=== PATIENT | female | born 1990 | race Two or more races ===

== ENCOUNTER 2021-03-02 10:56 | Outpatient (REF) | payer OTHER, SELFPAY ==
--- NOTE | 2021-03-02 11:52 | ECG_ITS ---
Test Reason : PRE OP Blood Pressure : / mmHG Vent. Rate : 066 BPM Atrial Rate : 066 BPM P-R Int : 138 ms QRS Dur : 076 ms QT Int : 388 ms P-R-T Axes : 062 057 019 degrees QTc Int : 406 ms Sinus rhythm with marked sinus arrhythmia Nonspecific ST abnormality Abnormal ECG No previous ECGs available Referred By: Filomena Reyes Electronically Signed By:ROWAN GOODWIN MD
[2021-03-02 11:58] LABS: MANUAL DIFF FLAG NO
[2021-03-02 12:04] LABS: Basophils Absolute Auto 0.1 X10*3/uL (0.0-0.2); Basophils Percent Auto 0.7 % (0-2); Eosinophils Absolute Auto 0.4 X10*3/uL (0.0-0.4); Eosinophils Percent Auto 3.8 % (0-4); Hematocrit 42.8 % (37-47); Hemoglobin 14.5 g/dl (12.0-16.0); Imm Gran Abs Auto 0.04 X10*3/uL (0.00-0.03); Imm Gran Pct Auto 0.4 % (0.0-0.4); Immature Retic Fraction 10.8 % (3.0-15.9); Lymphocytes Percent Auto 28.1 % (20-40); Mean Corpuscular HGB Conc 33.9 g/dl (31.0-35.0); Mean Corpuscular Hemoglobin 32.8 pg (27.0-33.0); Mean Corpuscular Volume 96.8 fL (80-98); Monocytes Absolute Auto 0.4 X10*3/uL (0.1-1.2); Monocytes Percent Auto 4.1 % (2-11); Neutrophils Absolute Auto 6.7 X10*3/uL (2.0-8.3); Neutrophils Percent Auto 62.9 % (45-73); Platelet Count 313 X10*3/uL (160-400); Red Blood Count 4.42 X10*6/uL (4.20-5.50); Retic HGB Equivalent 36.6 pg (30.0-35.0); Reticulocyte Percent 2.2 % (0.5-1.8); Reticulocytes Absolute 0.099 X10*6/uL (0.026-0.095); White Blood Count 10.7 X10*3/uL (4.8-10.8)
[2021-03-02 12:36] LABS: Alanine Aminotransferase 13 U/L (0-31); Albumin Level 4.3 g/dL (3.5-5.0); Alkaline Phosphatase 62 U/L (39-117); Anion Gap 14 (12-20); Aspartate Amino Transferase 13 U/L (5-31); Bilirubin Total 0.8 mg/dL (0.0-1.0); Blood Urea Nitrogen 13 mg/dL (9-16); Carbon Dioxide 25 mmol/L (22-29); Chloride 105 mmol/L (96-108); Cholesterol 186 mg/dL; Estimated Glomerular Filt Rate > 60; Glucose Random 95 mg/dL (60-115); HDL Cholesterol 32 mg/dL; Iron 97 mcg/dL (30-160); LDL Cholesterol Calculated 125 mg/dl; Percent Iron Saturation 32 % (15-50); Potassium 4.2 mmol/L (3.3-5.1); Sodium 140 mmol/L (135-145); Total Iron Binding Capacity 304 mcg/dL (228-428); Total Protein 6.9 g/dL (6.5-8.0); Triglycerides 146 mg/dL; Unsaturated Iron Binding 207 ug/dL
[2021-03-02 12:41] LABS: Ferritin 95 ng/mL (10-122); HCG Quantitative < 2 mIU/mL; Thyroid Stimulating Hormone 2.07 uIU/mL (0.32-4.0); Vitamin D 25-OH Total 19.6 ng/mL (>30)
[2021-03-02 13:57] LABS: Folate > 20.0 ng/mL (> or = 4.0); Vitamin B12 465 pg/mL (200-900)
== END 2021-03-02 10:57 | disposition home or self-care (01) ==
LOC: HO.LAB 10:56
PROVIDERS: PCP Internal Medicine; Visit Provider Internal Medicine
DX: Z01.818 Encounter for other preprocedural examination (principal); D64.9 Anemia, unspecified; E78.00 Pure hypercholesterolemia, unspecified
CPT/HCPCS: 36415; 80053; 80061; 82306; 82607; 82728; 82746; 83540; 84439; 84443; 84702; 85025; 85045; 93005

== ENCOUNTER → 2021-03-12 08:26 | Outpatient (REF) | payer OTHER, SELFPAY ==
--- NOTE | 2021-03-12 08:29 | ECG_ITS ---
Test Reason : PREOP Blood Pressure : / mmHG Vent. Rate : 066 BPM Atrial Rate : 066 BPM P-R Int : 134 ms QRS Dur : 078 ms QT Int : 376 ms P-R-T Axes : 061 050 -05 degrees QTc Int : 394 ms Normal sinus rhythm with sinus arrhythmia Nonspecific ST abnormality Abnormal ECG When compared with ECG of 02-MAR-2021 12:02, No significant change was found Referred By: Filomena Reyes Electronically Signed By:MAN MCKAY
== END ==
LOC: HO.CARD 08:26
PROVIDERS: PCP Internal Medicine; Visit Provider Internal Medicine
DX: Z01.818 Encounter for other preprocedural examination (principal)
CPT/HCPCS: 93005

== ENCOUNTER → 2021-03-15 11:17 | Outpatient (BNVA) | payer OTHER, SELFPAY | PROVIDERS: PCP Internal Medicine; Visit Provider Internal Medicine Cardiovascular Disease | DX: Z01.810 Encounter for preprocedural cardiovascular examination (principal) | CPT/HCPCS: 99202 ==

== ENCOUNTER → 2021-04-05 14:50 | Outpatient (BNVA) | payer OTHER, SELFPAY | PROVIDERS: PCP Internal Medicine; Referring Provider Internal Medicine; Visit Provider Surgery | DX: Z98.890 Other specified postprocedural states (principal) | CPT/HCPCS: 99202 ==

== ENCOUNTER 2021-04-13 09:56 | Emergency (ER) | payer OTHER, SELFPAY ==
[2021-04-13 10:41] VITALS: BP 104/74; PULSE 98; RESP 16; TEMP 36.9; O2SAT 99; BMI 32.2
--- NOTE | 2021-04-13 11:24 | ED.GENADULT ---
HPI - General Adult General Chief complaint: Wound/Laceration Stated complaint: WOUND CHECK Time Seen by Provider: 04/13/21 11:24 Source: patient Limitations: no limitations History of Present Illness HPI narrative: Patient returns for wound check at this time. In March patient had a tummy tuck surgery down in [place]. Patient recently had drains removed by local surgeon here. Patient denies any fever chills increasing abdominal pain. Patient denies any past medical history is not currently taking any medication. Patient does smoke tobacco and denies COVID-19 vaccines. Patient denies any discharge from the wounds or the wound coming apart. Patient does states the wound has been scabbing has some yellowness to 1 of the scabs. Related Data Home Medications Medication Instructions Recorded Confirmed ascorbate calcium (vitamin C) 500 500 mg PO DAILY 03/01/21 03/27/21 mg tablet ibuprofen 800 mg tablet 800 mg PO Q8H 03/01/21 03/27/21 multivitamin with iron 1 tab PO DAILY 03/01/21 03/27/21 acetaminophen 650 mg 650 mg PO Q12H 03/27/21 03/27/21 tablet,extended release Allergies Allergy/AdvReac Type Severity Reaction Status Date / Time No Known Allergies Allergy Mild NOT Verified 04/05/21 15:16 APPLICABLE Review of Systems Constitutional: Constitutional: Denies chills, Denies fever(s), Denies headache(s) and Denies malaise ENT: Denies headache(s) Cardiovascular: Cardiovascular: Denies chest pain and Denies dyspnea Respiratory: Respiratory: Denies dyspnea Gastrointestinal: Gastrointestinal: Denies diarrhea, Denies nausea and Denies vomiting Musculoskeletal: Musculoskeletal: Reports no additional musculoskeletal complaints Neurologic: Denies headache(s) Hematologic/Lymphatic: Hematologic/Lymphatic: Denies easy bleeding PMFSH Past Medical History Attestation statement: The following information was validated with the patient. Medical History Allergic rhinitis History of renal calculi Migraine Obesity (BMI 30-39.9) Tobacco abuse Surgical History History of abdominoplasty (~03/2021) History of section Family History Family History Father Hypertension CVD (cardiovascular disease) Mother Depression with anxiety PTSD (post-traumatic stress disorder) Brother Alive and well Maternal Grandmother COPD (chronic obstructive pulmonary disease) Diabetes Maternal Grandfather CVD (cardiovascular disease) Past heart attack Paternal Grandmother Breast cancer Maternal Uncle Substance abuse Social History Social History Alcohol intake: current Alcohol intake frequency: does not drink Smoking Status: Current some day smoker Cigarettes Per Day: 1 Smoked in Last 30 Days: Yes Use of substances other than those prescribed or required for medical reasons: No Advance Directives: No Advance Directives Information Provided: No Patient : No Physical Exam Vital Signs: Vital Signs: Last Vital Signs Temp 98.4 F 04/13/21 10:41 Pulse 98 04/13/21 10:41 Resp 16 04/13/21 10:41 BP 104/74 04/13/21 10:41 Pulse Ox 99 04/13/21 10:41 Body Mass Index 32.2 vital signs have been reviewed as normal and appeared to be correct. Blood pressure normal. Heart rate normal. Respiration rate normal. Temperature normal. Oxygen saturation normal. Appearance: Alert. Oriented X3. No acute distress. Head: Normal external exam. Normocephalic. Atraumatic. Eyes: PERRLA. EOMI. ENT: Pharynx normal. Uvula midline. CVS: Heart regular rate and rhythm no murmurs and rubs Respiratory: Breath sounds are clear to auscultation bilaterally. Abdomen: Soft nontender no rebound or guarding positive bowel sounds. Patient has a large scar from recent tummy tuck there is no wound dehiscence or purulent discharge noted abdomen soft in this area nontender. Skin: Skin warm and dry. Healing tummy tuck scar at this time Extremities: No lower extremity edema. Extremities exhibit normal range of motion. Extremities nontender. Neuro: Oriented X 3. No motor deficit. No sensory deficit. Reflexes normal. Course Course Course Narrative: Differential diagnosis: Wound checked lower abdomen Wound abscess wound dehiscence 11:28 a.m. The patient has no sign of wound dehiscence abdomen is soft in the area of the scar. Patient has a healing scar at this time advised to follow up with PCP and her surgeon and return if symptoms worsen. Topical antibiotic ointment is recommended at this time Discharge Plan Discharge Clinical Impression: Postop check Patient Disposition: Home, Self-Care Additional Instructions: Keep a close eye on the wound as it heals. Topical antibiotic ointment as needed Follow-up with your local surgeon Prescriptions: No Action ibuprofen 800 mg tablet 800 mg PO Q8H RF: 0 ascorbate calcium (vitamin C) 500 mg tablet 500 mg PO DAILY RF: 0 multivitamin with iron Tablet 1 tab PO DAILY RF: 0 acetaminophen [Tylenol 8 Hour] 650 mg tablet extended release 650 mg PO Q12H RF: 0 Referrals: Arvind Mckeon [Emergency Midlevel Provider] - 2 days Po,Filomena Waldrop MD [Primary Care Provider] - 2 days
== END 2021-04-13 11:46 | disposition home or self-care (01) ==
PROVIDERS: Emergency Provider Emergency Medicine; PCP Internal Medicine
DX: Z48.00 Encounter for change or removal of nonsurgical wound dressing (principal); Z79.899 Other long term (current) drug therapy; F17.210 Nicotine dependence, cigarettes, uncomplicated; Z71.6 Tobacco abuse counseling
CPT/HCPCS: 99283

== ENCOUNTER 2022-01-15 08:50 | Outpatient (REF) | payer OTHER, SELFPAY ==
[2022-01-16 03:45] LABS: CT PCR NOT DETECTED (Not Detect.); NG PCR NOT DETECTED (Not Detect.)
[2022-01-16 13:11] LABS: BV Int Neg Control Negative (Negative); BV Int Pos Control Positive (Positive)
[2022-01-19 15:02] LABS: HPV mRNA E6/E7 rflx Not Detected (Not Detected)
== END 2022-01-15 08:51 | disposition home or self-care (01) ==
LOC: HO.LAB 08:50
PROVIDERS: PCP Internal Medicine; Visit Provider Advanced Practice Midwife
DX: Z01.419 Encounter for gynecological examination (general) (routine) without abnormal findings (principal); T83.9XXA Unspecified complication of genitourinary prosthetic device, implant and graft, initial encounter; F17.210 Nicotine dependence, cigarettes, uncomplicated; N92.0 Excessive and frequent menstruation with regular cycle; N63.10 Unspecified lump in the right breast, unspecified quadrant; Z79.899 Other long term (current) drug therapy; Z20.2 Contact with and (suspected) exposure to infections with a predominantly sexual mode of transmission
CPT/HCPCS: 87480; 87491; 87510; 87591; 87624; 87660; 88142

== ENCOUNTER 2022-02-04 10:58 | Outpatient (REF) | payer OTHER, SELFPAY ==
--- NOTE | ~2022-02-04 | MM_ITS ---
EXAMINATION: MM DIAGNOSTIC DIGITAL BREAST TOMOSYNTHESIS, BILATERAL US DIAGNOSTIC ULTRASOUND BREAST, RIGHT CLINICAL INFORMATION: Palpable area noted at routine clinical exam upper right breast. Patient age 31. No prior breast imaging. No palpable abnormality noted by patient. No discharge. No known family history breast cancer. TC score 7%. COMPARISON: None (current study represents initial baseline exam). TECHNIQUE: Digital breast tomosynthesis is performed in both the craniocaudal and mediolateral oblique views along with computer-aided detection (CAD). Synthesized 2D images are generated from the tomosynthesis. Ultrasound breast is targeted to the upper breast. Grayscale imaging and color Doppler are performed without and with harmonics. Patient does not have palpable concern to direct attention at time of imaging. FINDINGS: There are scattered areas of fibroglandular density (ACR BI-RADS breast composition Category b). There are no significant masses, abnormal calcifications, or other abnormalities. There is no skin thickening or coarsening of the Troy's ligaments. The axilla and skin contours are unremarkable. Ultrasound demonstrates no cystic or solid mass or architectural abnormality or focal duct ectasia. Results are discussed with the patient at time of visit. MM/MM tomosynthesis diagnostic BI IMPRESSION: -No mammographic evidence of malignancy. -Unremarkable right breast ultrasound. ASSESSMENT: BI-RADS 1: Negative RECOMMENDATION: 1. Patient should be managed based on the clinical impression. If there is still clinically palpable concern, further evaluation may be considered with surgical consult. 2. Otherwise, routine annual screening mammography, beginning age 40, or earlier as clinical risk factors warrant. This patient's information was entered into a reminder system with a target due date for their next mammogram.
== END 2022-02-04 10:59 | disposition home or self-care (01) ==
LOC: HO.MAMMO 10:58
PROVIDERS: PCP Internal Medicine; Visit Provider Advanced Practice Midwife
DX: N63.12 Unspecified lump in the right breast, upper inner quadrant (principal)
CPT/HCPCS: 76642; 77062; 77063; 77066; 77067

== ENCOUNTER 2022-03-04 10:09 | Emergency (ER) | payer OTHER, SELFPAY ==
[2022-03-04 11:22] VITALS: BP 126/85; PULSE 103; RESP 18; TEMP 37.4; O2SAT 99; BMI 31.2
--- NOTE | 2022-03-04 11:40 | ED_ITS ---
HPI - General Adult General Chief complaint: General Medical Stated complaint: Sore throat Time Seen by Provider: 03/04/22 11:35 Source: patient Mode of arrival: ambulatory Limitations: no limitations History of Present Illness HPI narrative: 31-year-old female with reports of sore throat, subjective fevers cough for 4 days. No vomiting, diarrhea, chest pain, abdominal pain, headache, body aches Related Data Home Medications Medication Instructions Recorded Confirmed ascorbate calcium (vitamin C) 500 500 mg PO DAILY 03/01/21 01/15/22 mg tablet ibuprofen 800 mg tablet 800 mg PO Q8H 03/01/21 01/15/22 multivitamin with iron 1 tab PO DAILY 03/01/21 01/15/22 acetaminophen 650 mg 650 mg PO Q12H 03/27/21 12/17/21 tablet,extended release (Tylenol 8 Hour) levonorgestrel 20 mcg/24 hours (7 INTRAUTERINE 01/15/22 01/15/22 yrs) 52 mg intrauterine device (Mirena) Previous Rx's Medication Instructions Recorded erythromycin 5 mg/gram (0.5 %) eye 0.5 inch OPHTHALMIC (EYE) BID #1 g 12/17/21 ointment ibuprofen 600 mg tablet 600 mg PO Q8H PRN #20 tab 03/04/22 oseltamivir 75 mg capsule (Tamiflu) 75 mg PO Q12H 5 Days #10 cap 03/04/22 Allergies Allergy/AdvReac Type Severity Reaction Status Date / Time No Known Allergies Allergy Mild NOT Verified 03/04/22 11:25 APPLICABLE Review of Systems Review of Systems: Yes all other systems are reviewed and are negative Constitutional: Constitutional: Reports no additional constitutional complaints, Denies body ache(s), Denies chills, Reports fever(s) (subjectve), De nies headache(s) and Denies weakness Eyes: Eyes: Reports no additional eye complaints and Denies change in vision ENT: Reports system reviewed and no additional complaints, except as documented, Denies dizziness, Denies headache(s), Denies nasal congestion, Denies nasal discharge, Denies neck pain and Reports sore throat Cardiovascular: Cardiovascular: Reports no additional cardiovascular complaints, Denies chest pain, Denies leg edema and Denies dyspnea Respiratory: Respiratory: Reports no additional respiratory complaints, Reports cough and Denies dyspnea Gastrointestinal: Gastrointestinal: Reports no additional gastrointestinal complaints, Denies abdominal pain, Denies diarrhea, Denies nausea and Denies vomiting Genitourinary: Genitourinary: Reports no additional female genitourinary complaints and Denies urinary incontinence Musculoskeletal: Musculoskeletal: Reports no additional musculoskeletal complaints, Denies back pain, Denies arthralgias, Denies joint swelling, Denies neck pain, Denies numbness and Denies tingling Integumentary/Breasts: Skin/Breast: Reports system reviewed and no additional complaints, except as docu and Denies rash Neurologic: Reports system reviewed and no additional complaints, except as documented, Denies dizziness, Denies headache(s), Denies numbness, Denies tingling and Denies weakness PMFSH Past Medical History Attestation statement: The following information was validated with the patient. Source: old records reviewed and nursing notes reviewed Medical History Allergic rhinitis History of renal calculi Migraine Obesity (BMI 30-39.9) Tobacco abuse Surgical History History of abdominoplasty (~03/2021) History of section Family History Family History Father Hypertension CVD (cardiovascular disease) Mother Depression with anxiety PTSD (post-traumatic stress disorder) Brother Alive and well Maternal Grandmother COPD (chronic obstructive pulmonary disease) Diabetes Maternal Grandfather CVD (cardiovascular disease) Past heart attack Paternal Grandmother Breast cancer Maternal Uncle Substance abuse Social History Social History Housing: Apartment Alcohol intake: current Alcohol intake frequency: holidays/special occasions only Patient Tobacco Use Status: Current everyday Tobacco user Cigarettes Per Day: 3 Advance Directives: No Advance Directives Information Provided: No Patient : No Current occupational status: employed Physical Exam ED Vital Signs: Vital Signs - 24 hr 03/04/22 11:22 03/04/22 13:42 Temperature 99.3 F 101.9 F H Pulse Rate 103 H 121 H Respiratory Rate 18 Blood Pressure 126/85 118/78 Pulse Oximetry 99 96 BMI result Body Mass Index 31.2 Const General: cooperative, healthy appearing and no acute distress Orientation/consciousness: patient oriented x3 Limitations: no limitations HENMT Head: Yes normal to inspection Ears: hearing grossly normal bilaterally and TM's normal bilaterally General nose exam: Normal external nose present Face and sinus: Yes normal facial exam Mouth: Normal oral and palatal mucosa present Teeth and gingiva: dentition normal Throat: Yes posterior oropharynx normal, Yes tonsils normal and Yes uvula midline Eyes General: appearance normal, both eyes and all related structures Pupils: Equal, round and reactive pupils present Neck Neck: Yes normal visual inspection, Yes full ROM, Yes no lymphadenopathy and Yes no meningeal signs Chest Chest palpation & inspection: normal inspection of the chest Resp Effort & Inspection: normal respiratory effort Auscultation: clear to auscultation bilaterally Cardio Rate: regular rate Rhythm: regular rhythm Peripheral pulses: Peripheral pulses 2+ throughout GI Inspection: Yes normal to inspection Palpation (GI): Soft to palpation and nontender General: Yes no CVA tenderness Back/Spine/Pelvis Back: no CVA tenderness Thoracic/Lumbar Spine: thoracic and lumbar spine normal to inspection Skin General skin exam: no rashes or lesions noted Neuro General: patient oriented x3, moves all extremities and no meningeal signs Cranial nerves: Yes Equal, round and reactive pupils present Extrem General: Yes normal to inspection, Yes no pedal edema and Yes no calf tenderness Course Course Course Narrative: 31-year-old female here with 4 days of sore throat, cough and subjective fevers. Will check rapid flu, rapid COVID and strep testing 1400-flu A positive. Rapid strep and COVID are negative. Patient does have a fever and mild tachycardia which is likely secondary to fever which is from a viral infection. Patient received Tylenol prior to discharge. Recommended supportive care at home, alternating Tylenol and Motrin, lots of fluids. Patient also given course of Tamiflu. We discussed common side effects the medication. Reviewed worrisome signs and symptoms of when to return to the emergency department. Comfortable discharge home. Medical Decision Making Medical Records Medical records reviewed: Yes I reviewed the patient's medical records. Lab Data Lab results reviewed: Yes I reviewed the patient's lab results. Labs: Lab Results 03/04/22 03/04/22 03/04/22 Range/Units 11:28 11:42 11:42 COVID-19 ([facility]) Negative (Negative) COVID-19 Clin Com See Note Influenza Type A ([facility]) Positive A (Negative) Influenza Type B ([facility]) Negative (Negative) Influenza A & B Note See Note S. pyogenes GrpA [facility] Negative (Negative) Discharge Plan Discharge Clinical Impression: Influenza A Patient Disposition: Home, Self-Care Instructions: Influenza (DC) Additional Instructions: Motrin or tylenol for pain or fever Increase fluids, rest Prescriptions: New oseltamivir [Tamiflu] 75 mg capsule 75 mg PO Q12H 5 Days Qty: 10 0RF ibuprofen 600 mg tablet 600 mg PO Q8H PRN (Reason: pain) Qty: 20 0RF No Action ibuprofen 800 mg tablet 800 mg PO Q8H 0RF ascorbate calcium (vitamin C) 500 mg tablet 500 mg PO DAILY 0RF multivitamin with iron Tablet 1 tab PO DAILY 0RF acetaminophen [Tylenol 8 Hour] 650 mg tablet extended release 650 mg PO Q12H 0RF erythromycin 5 mg/gram (0.5 %) ointment 0.5 inch ophthalmic (eye) BID Qty: 1 0RF Mirena 20 mcg/24 hours (7 yrs) 52 mg intrauterine device intrauterine 0RF Referrals: Po,Filomena Waldrop MD [Primary Care Provider] - 1 week Stand Alone Forms: Work/School Release Interventions: ED Discharge Assessment Last Done: 03/04/22 14:09 Discharge Date/Time: 03/04/22 14:11
[2022-03-04 11:57] LABS: IDNOW Serial# 08D9AD1C; Strep A Nucleic Acid Negative (Negative)
[2022-03-04 12:10] LABS: Influenza A Positive (Negative); Influenza B2 Negative (Negative)
[2022-03-04 13:22] LABS: COVID-19 Test Negative (Negative)
[2022-03-04 13:42] VITALS: BP 118/78; PULSE 121; TEMP 38.8; O2SAT 96
[2022-03-04] MEDS: Acetaminophen 325 MG TABLET 975 MG PO (14:03)
== END 2022-03-04 14:11 | disposition home or self-care (01) ==
PROVIDERS: Nurse Practitioner Family; Emergency Provider Emergency Medicine; PCP Internal Medicine
DX: J11.1 Influenza due to unidentified influenza virus with other respiratory manifestations (principal); Z20.822 Contact with and (suspected) exposure to COVID-19; R50.9 Fever, unspecified
CPT/HCPCS: 36415; 87502; 87635; 87651; 99283

== ENCOUNTER 2024-02-06 10:07 | Outpatient (AMB) | payer OTHER, SELFPAY ==
[2024-02-06 10:11] VITALS: BP 100/62; BMI 33.2
--- NOTE | 2024-02-06 10:11 | A.OFFVIS_ITS ---
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 Information Interpreted: non-clinical & clinical Operational Assistant: Operational Assistant Present (Aidyn) Allergies No Known Allergies Allergy (Mild, Verified 02/06/24 10:13) NOT APPLICABLE Medication List - Last Reconciled 02/06/24 by Christiane Rock CNM acetaminophen ER (Tylenol 8 Hour) 650 mg PO Q12H ascorbate calcium (vitamin C) 500 mg PO DAILY erythromycin 0.5 inches ophthalmic (eye) BID ibuprofen 600 mg PO Q8H PRN ibuprofen 800 mg PO Q8H levonorgestrel (Mirena) intrauterine multivitamin with iron 1 tab PO DAILY Is last menstrual period known: No (No menses Mirena) Post menopausal: No 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 She has a Mirena IU S she was contemplating having it taken out but then she changed her mind because she realizes she does not want to get her. And she definitely needs it for control she has not involved with anybody right now so she was thinking she could do without but she does not want to take a chance on an unintended this is her 3rd Mirena it was giving her some trouble and she was having some pain and discomfort a couple of years ago but then the pain went away and so she never went for the ultrasound. She has had 3 C sections her cervix was difficult to visualize at the last visit. She also had a palpable mass in her right upper chest 2 years ago that was evaluated with mammogram and ultrasound and it was not palpable to the radiology team and it was not found. [facility] Medical History Obesity (BMI 30-39.9) Allergic rhinitis Migraine Tobacco abuse History of renal calculi Surgical History History of abdominoplasty (~03/2021) History of section Family History Father Hypertension CVD (cardiovascular disease) Mother Depression with anxiety PTSD (post-traumatic stress disorder) Brother Alive and well Maternal Grandmother COPD (chronic obstructive pulmonary disease) Diabetes Maternal Grandfather CVD (cardiovascular disease) Past heart attack Paternal Grandmother Breast cancer Maternal Uncle Substance abuse Social History (Updated 02/06/24 @ 10:15 by DEANGELO Ramos) Housing: Apartment Alcohol intake: current Alcohol intake frequency: holidays/special occasions only Patient Tobacco Use Status: Former Tobacco user Cigarettes Per Day: 3 Current occupational status: employed Female Reproductive History Menstrual Age of Menarche: 14 Duration of menses: 3-5 days control method: progestin IUCD Total pregnancies: 3 Full term: 3 Number of Living Children: 3 Date of last pap smear: 01/17/22 (negative) History of abnormal pap smear: No Physical Exam Vital Signs: Last Vital Signs BP 100/62 02/06/24 10:11 BMI result Body Mass Index 33.2 Const General: healthy appearing, comfortable, no acute distress, well developed and alert Nutritional Appearance: average body habitus Orientation/consciousness: patient oriented x3 Limitations: no limitations HEENT Head: Yes normocephalic Neck Neck: Yes normal visual inspection Chest Chest palpation & inspection: normal inspection of the chest Breast/axilla inspection: normal inspection of the breasts and normal inspection of the axillae Breast/axilla palpation: normal palpation of the breasts and normal palpation of the axillae Resp Effort & Inspection: normal respiratory effort GI Inspection: Yes normal to inspection, No Abdominal wall edema and No distended Palpation (GI): Soft to palpation and nontender Other: Vagina pink and moist with scant normal discharge cervix nulliparous with Mirena string extremely anterior uterus anterior mobile nontender not palpating is fixed as it felt at the last exam (patient has had 3 C sections) discussed possible challenging Mirena exchange will need base of table elevated. Very good tone with Kegel. General: Yes bladder normal to palpation External Female Exam: normal external appearance and normal appearance of the urethra Speculum Exam - Vagina: normal appearance of the vagina, normal palpation and normal vaginal discharge Speculum Exam - Cervix: normal appearance of the cervix, normal palpation and nontender Bimanual exam- vagina & uterus: normal bimanual exam, normal palpation, uterine size normal, bladder normal to palpation, consistency normal, normal palpation, uterine mobility normal, uterine shape normal, No Cervical tenderness present, non-tender and no cervical motion tenderness Bimanual Exam- Adnexa, other: normal adnexae, no masses, normal and No adnexal tenderness Neuro General: patient oriented x3 Assessment & Plan Assessment & Plan (1) Cervical cancer screening: Comment: 01/15/2022 Pap equals negative with negative HPV. Code(s): Z12.4 - Encounter for screening for malignant neoplasm of cervix (2) Well woman exam with routine gynecological exam: Code(s): Z01.419 - Encounter for gynecological examination (general) (routine) without abnormal findings (3) Encounter for routine checking of intrauterine contraceptive device (IUD): Code(s): Z30.431 - Encounter for routine checking of intrauterine contraceptive device Plan -----Discussed in this visit the following: healthy balanced diet, regular and consistent exercise, getting recommended health screens, doing the best she can for her particular health concerns, kegel exercises, pap smear screening and followup recommendations, mammography screening and SBE, normal changes in cycles in her life stage--- .Reviewed how the Mirena works and its affect on menstrual cycles and menses and the other common changes that women sometimes notice on mood weight another subtle cyclic changes. Reviewed that 1 of the reasons we insert the Mirena at the beginning of the menses is because of the typical physiologic changes that happen with menses that allow for the cervix to be slightly softened and open a very tiny bit which allow for more easy insertion of the Mirena. 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 Discussed problems to watch for including any severe pain, fever, feeling of expulsion. Also discussed what to do if those occur.(call here or seek urgent care) Reviewed why we leave the strings about 3-4 centimetres long, so that they will curl around the cervix otherwise the sharper tip of the strings could be palpable and be uncomfortable. Additionally when they are cut too short it is not possible to remove the IUD in the future easily. Also discussed the initial recommendations to use the Mirena IUD for contraception for up to 5 years. Some recent studies are indicating that it can be used for longer and there are current recommendations saying it can be left for longer period of time when used for contraception, up to 8 years and it can be used for 5 years when it is being used to help control abnormal bleeding. However, many women, whose periods went away for the 1st few years of having the Mirena, have reported that around 4-1/2-5 years into its use, they have noticed return of full menses, and return of ovulatory signs and symptoms midcycle. This varies from women to woman. In addition women who have had it to help control bleeding, have had amenorrhea for very many years and sometimes have opted to leave it in longer if they are still not bleeding, when they are not concerned about contraception. I recommend the she pay attention to how the effects are acting on her own body, and cycles, and always take care to be aware of this. And if she is using it for contraception, and the consequences of conceiving would be great for her, she would be mckeon to pay attention to this, and not depend on it, if she has a return to fertility. And if she desires replacement, she should return for replacement at the appropriate time. Reviewed in particular that it can be left in longer for contraceptive use however the patient is very clear that she would not want to chance an on planned and very much would want to have it replaced when it is due to be replaced which is this coming May she is going to schedule that now. I offered her other STI blood work but she declined.. Coding Level of Care Code Est Pt Prev Care 18-39y(77001) Diagnoses Cervical cancer screening Z12.4 Well woman exam with routine gynecological exam Z01.419 Encounter for routine checking of intrauterine contraceptive device (IUD) Z30.431
== END 2024-02-06 11:08 | disposition home or self-care (01) ==
LOC: HO.HWSM 10:07
PROVIDERS: PCP Internal Medicine; Visit Provider Advanced Practice Midwife
DX: Z12.4 Encounter for screening for malignant neoplasm of cervix (principal); Z01.419 Encounter for gynecological examination (general) (routine) without abnormal findings; Z30.431 Encounter for routine checking of intrauterine contraceptive device
CPT/HCPCS: 99395

== ENCOUNTER 2024-02-06 10:07 | Outpatient (REF) | payer OTHER, SELFPAY ==
[2024-02-07 09:50] LABS: CT PCR NOT DETECTED (Not Detect.); NG PCR NOT DETECTED (Not Detect.)
[2024-02-07 12:06] LABS: BV Int Neg Control Negative (Negative); BV Int Pos Control Positive (Positive)
== END 2024-02-06 10:08 | disposition home or self-care (01) ==
LOC: HO.LNP 10:07
PROVIDERS: PCP Internal Medicine; Visit Provider Advanced Practice Midwife
DX: Z01.419 Encounter for gynecological examination (general) (routine) without abnormal findings (principal); Z20.2 Contact with and (suspected) exposure to infections with a predominantly sexual mode of transmission; Z97.5 Presence of (intrauterine) contraceptive device; Z79.899 Other long term (current) drug therapy
CPT/HCPCS: 0353U; 87480; 87510; 87660; 99395

== ENCOUNTER 2024-04-16 09:08 | Outpatient (AMB) | payer OTHER, SELFPAY ==
[2024-04-16 09:15] VITALS: BP 118/64; BMI 33.2
--- NOTE | 2024-04-16 09:15 | MHC.OFFVIS ---
Vital Signs 04/16/24 09:15 Height 5 ft Weight 170 lb BMI 33.2 BP 118/64 Intake Visit Reasons: Mirena exchange Allergies No Known Allergies Allergy (Mild, Verified 02/06/24 10:13) NOT APPLICABLE Medication List - Last Reconciled 04/16/24 by Christiane Rock CNM acetaminophen ER (Tylenol 8 Hour) 650 mg PO Q12H ascorbate calcium (vitamin C) 500 mg PO DAILY erythromycin 0.5 inches ophthalmic (eye) BID ibuprofen 600 mg PO Q8H PRN ibuprofen 800 mg PO Q8H levonorgestrel (Mirena) intrauterine metronidazole 0.75%(37.5mg/5gram) 1 appful vaginal BEDTIME 5 days multivitamin with iron 1 tab PO DAILY Is last menstrual period known: No (IUD) HPI HPI Mirena exchange: Details: Exchange of her Mirena IUD she has had 3 is ones been in for 5 years she understands it can be used longer but she did not want to take any possible chance on the unintended this stage of her life with her oldest being 15 years old and her other 2 growing. 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 She has not been getting periods. She recalls that the last exchange was challenging. [facility] Medical History Obesity (BMI 30-39.9) Allergic rhinitis Migraine Tobacco abuse History of renal calculi Surgical History History of abdominoplasty (~03/2021) History of section Family History Father Hypertension CVD (cardiovascular disease) Mother Depression with anxiety PTSD (post-traumatic stress disorder) Brother Alive and well Maternal Grandmother COPD (chronic obstructive pulmonary disease) Diabetes Maternal Grandfather CVD (cardiovascular disease) Past heart attack Paternal Grandmother Breast cancer Maternal Uncle Substance abuse Social History Housing: Apartment Alcohol intake: current Alcohol intake frequency: holidays/special occasions only Patient Tobacco Use Status: Former Tobacco user Cigarettes Per Day: 3 Current occupational status: employed Female Reproductive History Menstrual Age of Menarche: 14 Duration of menses: other control method: progestin IUCD Total pregnancies: 3 Full term: 3 Physical Exam Vital Signs: Last Vital Signs BP 118/64 04/16/24 09:15 BMI result Body Mass Index 33.2 Other: Speculum placed to obtain cultures as not clear when the last ones were done. Cervix pink nulliparous shiny smooth with Mirena strings visible clear to scant discharge Bimanual done to confirm anatomy. Cervix very anterior uterus anterior small somewhat fixed secondary to scar tissue from 3 C sections. Speculum we placed for Mirena exchange procedure. See procedures. External Female Exam: normal external appearance Speculum Exam - Vagina: normal appearance of the vagina and normal vaginal discharge Speculum Exam - Cervix: normal appearance of the cervix Bimanual exam- vagina & uterus: normal bimanual exam, uterine size normal, consistency normal, uterine mobility normal, uterine shape normal and non-tender Bimanual Exam- Adnexa, other: normal adnexae, no masses and No adnexal tenderness Office Procedures IUD Insert/Removal Details Details: ---Patient is here for her IUD removal and insertion. Secondary to the very anterior situation of her cervix and uterus patient has buttocks were elevated somewhat physically and a well by her placing her fists underneath her buttocks. Speculum exam done 1st so that testing for gonorrhea chlamydia trichomoniasis Gardnerella and Emperatriz be done. Bimanual exam was done. Her uterus is firm, nontender, and appropriate sized, very anterior and slightly fixed anteriorly secondary to scar tissue from C-sections. Cervix nulliparous pink smooth very anterior secondary to above. . The IUD strings were grasped with ring forceps, and as patient coughed the IUD was removed easily with 1 tug. ---The cervix was cleaned with Betadine. Tenaculum was placed on the cervix slowly to minimize cramping. The uterus was sounded slowly and gently she show a measurement of 7 cm. The IUD was removed from its package, after checking identifying information and lot dates and expiration dates and and gently inserted into the os, as per the IUD insertion procedure. The strings were then trimmed to 3-4 centimetres. The tenaculum was removed and gentle pressure applied with a swab, until any bleeding subsided from the tenaculum sites. The speculum was gently removed. The patient sat up. I Reviewed what to expect, and what indications would necessitate a call. Pt to call for fever, untoward pain or cramping. I reviewed any appropriate backup method. Pt to return for recheck as scheduled. 86452-KRP Insertion 10993-SUB Removal Procedure code (CPT) selection complete Office Meds Mirena 21 mcg/24 hours (8 yrs) 52 mg intrauterine device Performing Provider: Christiane Rock CNM Performing Location: [facility] [place] [facility] Administered by: Marcin Gonzalez CMA on 04/16/24 10:11 Dose Route Admin Location Dispensed Lot Number Expiration Date 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 Code(s): Z12.4 - Encounter for screening for malignant neoplasm of cervix Category: Medical (2) Encounter for removal and reinsertion of intrauterine contraceptive device (IUD): Code(s): Z30.433 - Encounter for removal and reinsertion of intrauterine contraceptive device Category: Medical Plan The removal and insertion went very smoothly within the challenging position of her cervix in uterus. Reviewed signs and symptoms that would require seeking care signs of infection fever chills severe pain any signs of expulsion. If it were to be expelled, she should avoid intercourse until replacement. She may take ibuprofen 600 mg for cramping. She tolerated it very well we will see her in about 6 weeks to check on it. This is her 3rd 1 and she is very familiar with the side effects again anything is possible with the change of method some bleeding may be possible Orders: Orders AMB HCG Urine Test Today Z32.02 - Encounter for test, result negative AMB IUD Insertion/Removal - Practice Supplied Today Z30.430 - Encounter for insertion of intrauterine contraceptive device Coding Level of Care Code Est Pt Level 3 (11706) Diagnoses Cervical cancer screening Z12.4 Encounter for removal and reinsertion of intrauterine contraceptive device (IUD) Z30.433 CPT Codes Details - CPT: 55166-BIQ Insertion ([id number]) Details - CPT: 84742-IYG Removal ([id number])
== END 2024-04-16 10:39 | disposition home or self-care (01) ==
PROVIDERS: PCP Internal Medicine; Visit Provider Advanced Practice Midwife
DX: Z30.433 Encounter for removal and reinsertion of intrauterine contraceptive device (principal); Z32.02 Encounter for pregnancy test, result negative
CPT/HCPCS: 58300; 58301

== ENCOUNTER 2024-04-16 09:08 | Outpatient (REF) | payer OTHER, SELFPAY ==
[2024-04-17 03:49] LABS: CT PCR NOT DETECTED (Not Detect.); NG PCR NOT DETECTED (Not Detect.)
[2024-04-17 09:29] LABS: Bacterial Vaginosis PCR NEGATIVE (Negative); Candida Group PCR NOT DETECTED (Not Detect); Candida glab krusei PCR NOT DETECTED (Not Detect); Trichomonas vaginalis PCR NOT DETECTED (Not Detect)
== END 2024-04-16 09:09 | disposition home or self-care (01) ==
LOC: HO.LAB 09:08
PROVIDERS: PCP Internal Medicine; Visit Provider Advanced Practice Midwife
DX: Z01.419 Encounter for gynecological examination (general) (routine) without abnormal findings (principal); Z30.433 Encounter for removal and reinsertion of intrauterine contraceptive device
CPT/HCPCS: 0352U; 0353U; 58300; 58301; 81025; J7298

== ENCOUNTER 2024-05-18 08:50 | Outpatient (AMB) | payer OTHER, SELFPAY ==
--- NOTE | 2024-05-18 08:57 | MHC.PC.OV ---
Vital Signs 05/18/24 09:01 Height 5 ft Weight 171 lb 8 oz BMI 33.5 BP 120/72 Blood Pressure Location Lt brachial Position Sitting Pulse 79 Pulse Source Pulse Oximeter Pulse Oximetry (%) 98 Oxygen Delivery Method Room Air Intake Visit Reasons: establish care/ rash on feet, and swelling fingers Intake Note: Patient is here today to re-establish care. Complaint of possible fungus under left foot, swelling of fingers, feet and ankles. Associate Required: No Director Of Respiratory Therapy: Not Required per policy Accompanied by: Self / Same As Patient Allergies No Known Allergies Allergy (Mild, Verified 05/18/24 19:32) NOT APPLICABLE Medication List - Last Reconciled 05/18/24 by Renard Barahona MD acetaminophen ER (Tylenol 8 Hour) 650 mg PO Q12H furosemide (Lasix) 20 mg PO Q OTHER DAY ketoconazole 2% 1 appl topical DAILY levonorgestrel (Mirena) intrauterine Tobacco use date assessed: 05/18/24 Dental Screening Dental Screen Date: 05/18/24 Did you have a dental visit in the last 12 months?: Yes Did you have a dental problem in the last 6 months where you did not have access to dental care?: No Was dental information given to patient?: Patient has dentist HPI establish care/ rash on feet, and swelling fingers HPI Details 33-year-old female presents to the office to establish her care. Patient is complaining of swelling in the feet and hands. This is ongoing for many years. Towards the end of the day she finds both her upper and lower extremities swollen. The ring on her fingers are tight towards the end of the day. No shortness a breath. Able to walk with no difficulty. Symptoms are swelling are worse in the hot weather. Patient believes she has fungus on the great toe of the right foot. [facility] Medical History (Updated 05/18/24 @ 19:40 by Renard Barahona MD) Obesity (BMI 30.0-34.9) Dystrophic nail Edema of both feet Obesity (BMI 30-39.9) Allergic rhinitis Migraine Tobacco abuse History of renal calculi Surgical History History of abdominoplasty (~03/2021) History of section Family History Father Hypertension CVD (cardiovascular disease) Mother Depression with anxiety PTSD (post-traumatic stress disorder) Brother Alive and well Maternal Grandmother COPD (chronic obstructive pulmonary disease) Diabetes Maternal Grandfather CVD (cardiovascular disease) Past heart attack Paternal Grandmother Breast cancer Maternal Uncle Substance abuse Other Mental health disorder Social History Housing: Apartment Alcohol intake: current Alcohol intake frequency: holidays/special occasions only Patient Tobacco Use Status: Former Tobacco user Cigarettes Per Day: 3 e-Cigarette/Vaping Use: Never Used Second Hand Smoke Exposure: Yes service: No Current occupational status: employed 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 1. Little interest or pleasure in doing things: not at all 2. Feeling down, depressed, or hopeless: not at all 3. Trouble falling or staying asleep, or sleeping too much: not at all 4. Feeling tired or having little energy: not at all 5. Poor appetite or overeating: not at all 6. Feeling bad about yourself - or that you are a failure or have let yourself or your family down: not at all 7. Trouble concentrating on things, such as reading the newspaper or watching television: not at all 8. Moving or speaking so slowly that other people could have noticed. Or the opposite - being so fidgety or restless that you have been moving around a lot more than usual: not at all 9. Thoughts that you would be better off or of hurting yourself in some way: not at all Total score: 0 Depression Screening Interpretation: Negative Depression Screening Done: Yes Source: Developed by Drs. Marko Lr, Halie Chawla, Sarwat Waite and colleagues, with an educational brenna from [employer]. Thrive Questionnaire Date Thrive assessed: 05/18/24 I am a: Patient What is your living situation today?: I have a steady place to live Within the past 12 months, did the food you bought not last and you didn't have the money to get more?: Never true Within the past 12 months, did you worry whether your food would run out before you got money to buy more?: Never true Do you have trouble paying for medicines?: No Do you have trouble getting transportation to medical appointments?: No Do you have trouble paying your heating and electricity bill?: No Do you have trouble taking care of your child, family member or friend?: No Do you have trouble with day-to-day activities such as bathing, preparing meals, shopping, managing finances, etc.?: No Are you currently unemployed and looking for a job?: No Are you interested in more education?: No Currently or been in a relationship where the following occur: no concerns reported THRIVE Score: 0 AUDIT C Alcohol Use Questionnaire (AUDIT-C) 1. How often do you have a drink containing alcohol?: Monthly or less 2. How many drinks containing alcohol do you have on a typical day when you are drinking?: 1 or 2 Total Score: 1 KRISTOPHER-7 AMB Questionnaire KRISTOPHER-7 Date KRISTOPHER - 7 assessed: 05/18/24 Feeling nervous, anxious, or on edge: 0 = Not at all Not being able to stop or control worryin = Not at all Worrying too much about different things: 0 = Not at all Trouble relaxin = Not at all Being so restless that it is hard to sit still: 0 = Not at all Becoming easily annoyed or irritable: 0 = Not at all Feeling afraid as if something awful might happen: 0 = Not at all Total KRISTOPHER-7 score (0-4 normal; 5-9 mild; 10-14 moderate; 15-21 severe): 0 Source: Developed by Drs. Marko Lr, Halie Chawla, Sarwat Waite and colleagues, with an educational brenna from [employer]. Physical exam (Primary Care) Vital Signs: Last Vital Signs Pulse 79 05/18/24 09:01 BP 120/72 05/18/24 09:01 Pulse Ox 98 05/18/24 09:01 Oxygen Delivery Method Room Air 05/18/24 09:01 Care Plan Goal for BP management: Blood pressure is stable. BMI result Body Mass Index 33.5 BMI Assessment/Plan discussion: High (Lb per week weight loss suggested.) BMI High, discussed plan: lifestyle, weight reduction and dietary Tobacco/Smoking Status: Tobacco use Status Tobacco use date assessed 05/18/24 05/18/24 09:09 Patient Tobacco Use Status Former Tobacco user 05/18/24 08:57 e-Cigarette/Vaping Use Never Used 05/18/24 09:09 PHQ-9: PHQ-9 Score PHQ-9: Total score 0 05/18/24 10:01 Depression Screening Interpretation: Negative Thrive Assessment: Date of Thrive Assessment Date Thrive assessed 05/18/24 05/18/24 08:59 Currently or been in a relationship where the following occur: no concerns reported Const General: cooperative and healthy appearing Nutritional Appearance: well nourished Orientation/consciousness: patient oriented x3 Limitations: no limitations HENMT Head: Yes normal to inspection Eyes General: appearance normal, both eyes and all related structures Neck Neck: Yes normal visual inspection Chest Chest palpation & inspection: normal palpation of entire chest wall Resp Effort & Inspection: normal respiratory effort Skin Other: Right foot: Sole: Hyperpigmented, darkened area Neuro General: patient oriented x3 Extrem Other: Right and left leg, right and left hand: No visible or pitting edema. Skin is puffy. Foot: Great toe: Dystrophic nail, tightly clipped up to the skin. Assessment and Plan Assessment & Plan (1) Edema of both feet: Code(s): R60.0 - Localized edema Plan: No visible edema on clinical exam today. Blood work to rule out thyroid disorder. Patient was given Lasix to use intermittently. (2) Dystrophic nail: Code(s): L60.3 - Nail dystrophy Plan: Unlikely on onychomycosis. However toe clippings are needed for a culture. Patient was advised to let the nail grow and come back and the clippings will be taken. (3) Rash: Code(s): R21 - Rash and other nonspecific skin eruption Plan: Ketoconazole ointment prescribed. (4) Obesity (BMI 30.0-34.9): Code(s): E66.9 - Obesity, unspecified Plan: Counseling on the importance of diet and exercise. Orders: Orders Basic Metabolic Panel Today I87.2 - Venous insufficiency (chronic) (peripheral) Complete Blood Count no Diff Today I87.2 - Venous insufficiency (chronic) (peripheral) Liver Panel Today I87.2 - Venous insufficiency (chronic) (peripheral) Lipid Panel Today I87.2 - Venous insufficiency (chronic) (peripheral) Thyroid Stimulating Hormone Today I87.2 - Venous insufficiency (chronic) (peripheral) UA and rflx microscopic Today I87.2 - Venous insufficiency (chronic) (peripheral) Medications: New ketoconazole 2% 1 appl topical DAILY 30 grams 1RF furosemide (Lasix) 20 mg PO Q OTHER DAY 14 tabs 0RF Coding Level of Care Code Est Pt Level 4 (60013) Complex EM visit Add On G2211 Diagnoses Edema of both feet R60.0 Dystrophic nail L60.3 Rash R21 Obesity (BMI 30.0-34.9) E66.9
[2024-05-18 09:01] VITALS: BP 120/72; PULSE 79; O2SAT 98; BMI 33.5
== END 2024-05-18 11:38 | disposition home or self-care (01) ==
PROVIDERS: PCP Internal Medicine; Visit Provider Internal Medicine
DX: R60.0 Localized edema (principal); L60.3 Nail dystrophy; R21 Rash and other nonspecific skin eruption
CPT/HCPCS: 99214; G2211

== ENCOUNTER 2024-12-14 10:58 | Outpatient (AMB) | payer OTHER, SELFPAY ==
--- NOTE | 2024-12-14 11:03 | A.OFFPC_ITS ---
Vital Signs 12/14/24 11:04 Height 5 ft Weight 173 lb 8 oz BMI 33.9 BP 130/60 Blood Pressure Location Lt brachial Position Sitting Pulse 75 Pulse Source Pulse Oximeter Temp 97.8 F Temp Source Oral Pulse Oximetry (%) 98 Oxygen Delivery Method Room Air Intake Visit Reasons: pe Intake Note: Patient is here today for a physical. 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 Required: No Police Officer: Not Required per policy Accompanied by: Self / Same As Patient Allergies No Known Allergies Allergy (Mild, Verified 12/14/24 11:19) NOT APPLICABLE Medication List - Last Reconciled 12/14/24 by Nubia Singleton PA-C acetaminophen ER (Tylenol 8 Hour) 650 mg PO Q12H levonorgestrel (Mirena) intrauterine Tobacco use date assessed: 12/14/24 Dental Screening Dental Screen Date: 12/14/24 Did you have a dental visit in the last 12 months?: Yes Did you have a dental problem in the last 6 months where you did not have access to dental care?: No Was dental information given to patient?: Patient has dentist HPI pe HPI Details 34-year-old female with past medical his tory of obesity, anemia and tobacco abuse last seen by Dr. Barahona 05/2024 coming in for annual exam. Patient tells us she was evaluated back in May by Dr. Barahona and was given antifungal cream for foot she states the great toenails bilaterally has been worsening and has been thickening with toenail color change. She also mentions having bilateral hand and feet swelling which is chronic. It initially began as mild swelling that would resolve with elevation has progressed to persistent swelling. It does improve with compression stockings and elevation. She also mentioned having palpitations throughout the day that has been ongoing for several years. She will have palpitations 3-4 times per month and states the episodes have been getting progressively longer. Lastly she mentioned she had a stye on the left lower eyelid several weeks ago that has now resolved but is still having a white bump on the anterior aspect of the lower eyelid. [facility] Medical History Well woman exam with routine gynecological exam Infectious conjunctivitis of left eye Infection involving suture with abscess Obesity (BMI 30.0-34.9) Dystrophic nail Edema of both feet Obesity (BMI 30-39.9) Allergic rhinitis Migraine Tobacco abuse History of renal calculi Surgical History History of abdominoplasty (~03/2021) History of section Family History Father Hypertension CVD (cardiovascular disease) Mother Depression with anxiety PTSD (post-traumatic stress disorder) Brother Alive and well Maternal Grandmother COPD (chronic obstructive pulmonary disease) Diabetes Maternal Grandfather CVD (cardiovascular disease) Past heart attack Paternal Grandmother Breast cancer Maternal Uncle Substance abuse Other Mental health disorder Social History Housing: Apartment Alcohol intake: current Alcohol intake frequency: holidays/special occasions only Patient Tobacco Use Status: Former Tobacco user Cigarettes Per Day: 3 e-Cigarette/Vaping Use: Never Used Second Hand Smoke Exposure: Yes service: No Current occupational status: employed 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 1. Little interest or pleasure in doing things: not at all 2. Feeling down, depressed, or hopeless: not at all 3. Trouble falling or staying asleep, or sleeping too much: not at all 4. Feeling tired or having little energy: not at all 5. Poor appetite or overeating: not at all 6. Feeling bad about yourself - or that you are a failure or have let yourself or your family down: not at all 7. Trouble concentrating on things, such as reading the newspaper or watching television: not at all 8. Moving or speaking so slowly that other people could have noticed. Or the opposite - being so fidgety or restless that you have been moving around a lot more than usual: not at all 9. Thoughts that you would be better off or of hurting yourself in some way: not at all Total score: 0 Depression Screening Interpretation: Negative Depression Screening Done: Yes Source: Developed by Drs. Marko Lr, Halie Chawla, Sarwat Waite and colleagues, with an educational brenna from [employer]. Thrive Questionnaire Date Thrive assessed: 12/14/24 I am a: Patient What is your living situation today?: I have a steady place to live Within the past 12 months, did the food you bought not last and you didn't have the money to get more?: Never true Within the past 12 months, did you worry whether your food would run out before you got money to buy more?: Never true Do you have trouble paying for medicines?: No Do you have trouble getting transportation to medical appointments?: No Do you have trouble paying your heating and electricity bill?: No Do you have trouble taking care of your child, family member or friend?: No Do you have trouble with day-to-day activities such as bathing, preparing meals, shopping, managing finances, etc.?: No Are you currently unemployed and looking for a job?: No Are you interested in more education?: No Please select the resources that you would like help with: None Currently or been in a relationship where the following occur: No 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 How often do you have a drink containing alcohol?: Monthly or less 2. How many drinks containing alcohol do you have on a typical day when you are drinking?: 1 or 2 3. How often do you have six or more drinks on one occasion?: Never Total Score: 1 KRISTOPHER-7 AMB Questionnaire KRISTOPHER-7 Date KRISTOPHER - 7 assessed: 12/14/24 Feeling nervous, anxious, or on edge: 0 = Not at all Not being able to stop or control worryin = Not at all Worrying too much about different things: 0 = Not at all Trouble relaxin = Not at all Being so restless that it is hard to sit still: 0 = Not at all Becoming easily annoyed or irritable: 0 = Not at all Feeling afraid as if something awful might happen: 0 = Not at all Total KRISTOPHER-7 score (0-4 normal; 5-9 mild; 10-14 moderate; 15-21 severe): 0 Source: Developed by Halie LamW. [place], Sarwat Waite and colleagues, with an educational brenna from [employer]. Review of Systems Const Denies body aches, Denies fatigue, Denies fever(s), Denies frequent falls, Denies headache(s) and Denies weakness Eyes Reports no additional complaints and Denies change in vision ENT Denies dysphagia, Denies dizziness, Denies facial pain, Denies headache(s), Denies nasal congestion and Denies odynophagia Card Denies chest pain, Denies syncope, Denies irregular heart rhythm, Denies leg edema, Denies lightheadedness and Denies dyspnea Resp Denies cough and Denies dyspnea GI Denies constipation, Denies dysphagia, Denies dyspepsia, Denies diarrhea, Denies nausea, Denies odynophagia and Denies vomiting Denies urinary frequency, Denies dysuria, Denies urinary hesitancy and Denies urinary urgency Musc Denies back pain and Denies myalgias Skin/Breast Reports system reviewed and no additional complaints, except as documented Neuro Denies dizziness, Denies syncope, Denies frequent falls, Denies headache(s) and Denies weakness Psych Reports no additional complaints Endo Denies fatigue Physical exam (Primary Care) Vital Signs: Last Vital Signs Temp 97.8 F 12/14/24 11:04 Pulse 75 12/14/24 11:04 BP 130/60 12/14/24 11:04 Pulse Ox 98 12/14/24 11:04 Oxygen Delivery Method Room Air 12/14/24 11:04 BMI result Body Mass Index 33.9 Tobacco/Smoking Status: Tobacco use Status Tobacco use date assessed 12/14/24 12/14/24 11:10 Patient Tobacco Use Status Former Tobacco user 12/14/24 11:10 e-Cigarette/Vaping Use Never Used 12/14/24 11:10 PHQ-9: PHQ-9 Score PHQ-9: Total score 0 12/14/24 11:10 Depression Screening Interpretation: Negative Thrive Assessment: Date of Thrive Assessment Date Thrive assessed 12/14/24 12/14/24 11:10 Currently or been in a relationship where the following occur: No concerns reported Const General: cooperative, healthy appearing, comfortable and no acute distress Orientation/consciousness: patient oriented x3 HENMT Head: Yes normocephalic Ears: hearing grossly normal bilaterally, external ears normal, TM's normal bilaterally and EAC's normal General nose exam: Normal external nose present Face and sinus: Yes normal facial exam and Yes sinuses nontender Mouth: Normal oral and palatal mucosa present and tongue normal Throat: Yes posterior oropharynx normal Eyes General: appearance normal, both eyes and all related structures Conjunctivae: conjunctivae normal Pupils: Equal, round and reactive pupils present EOM: EOMs intact bilaterally and No Nystagmus present Neck Neck: Yes normal visual inspection, Yes full ROM and Yes no lymphadenopathy Chest Chest palpation & inspection: normal inspection of the chest Resp Effort & Inspection: normal respiratory effort Auscultation: clear to auscultation bilaterally, no crackles, no rales, no rhonchi, no wheezes and breath sounds present Cardio Rate: regular rate Rhythm: regular rhythm Peripheral pulses: radial pulses present and dorsalis pedis present GI Inspection: Yes normal to inspection and No Abdominal wall edema Palpation (GI): Soft to palpation, not firm and nontender Auscultation: normal bowel sounds Rectal Exam - Female: deferred General: Yes no CVA tenderness Back/Spine/Pelvis Back: no CVA tenderness Skin Other: Yellow discoloration and thickening of bilateral great toenails General skin exam: no rashes or lesions noted Neuro General: patient oriented x3 Cranial nerves: Yes Equal, round and reactive pupils present, Yes Midline tongue present, Yes Ability to bilaterally elevate shoulders present and No Nystagmus present Gait exam (Neuro): Normal gait present Extrem Other: Bilateral nonpitting edema of lower extremities without redness, warmth or er ythema. No pain to palpation. Pulses and sensation intact in bilateral lower extremities. General: Yes normal to inspection, Yes full ROM, No no pedal edema and No edema Psych Speech and movement: Normal speech and movement present Affect: normal affect Insight: Good insight present (Psych) Judgement: Good judgement present (Psych) Coding Level of Care Code Est Pt Level 4 (54338) Diagnoses Obesity (BMI 30.0-34.9) E66.9 Cervical cancer screening Z12.4 Tobacco abuse Z72.0 Anemia D64.9 Ingrown toenail L60.0 Edema of both feet R60.0 Hordeolum H00.019 Palpitations R00.2 Onychomycosis B35.1 Assessment & Plan Assessment & Plan (1) Obesity (BMI 30.0-34.9): Code(s): E66.9 - Obesity, unspecified Category: Medical Plan: Healthy diet and regular exercise is encouraged. (2) Cervical cancer screening: Comment: 01/15/2022 Pap equals negative with negative HPV. Code(s): Z12.4 - Encounter for screening for malignant neoplasm of cervix Category: Medical Plan: Referral placed to gynecology. (3) Tobacco abuse: Code(s): Z72.0 - Tobacco use Category: Medical Plan: Smoking cigarettes and the use of tobacco can be harmful. We discussed the importance of stopping and options to aid in smoking cessation. (4) Anemia: Code(s): D64.9 - Anemia, unspecified Category: Medical Plan: Ordered for updated blood work. (5) Ingrown toenail: Code(s): L60.0 - Ingrowing nail Category: Medical Plan: Patient having ingrown toenail on bilateral great toes referral placed to Podiatry at patient's request. (6) Edema of both feet: Code(s): R60.0 - Localized edema Category: Medical Plan: Patient having bilateral nonpitting swelling without redness, erythema or warmth. No tenderness to palpation on exam. Pulses and sensation intact in bilateral lower extremities. Advised patient to continue with compression stockings, elevate the legs and encouraged exercise and weight loss. Ordered for blood work for additional investigation. (7) Hordeolum: Code(s): H00.019 - Hordeolum externum unspecified eye, unspecified eyelid Category: Medical Plan: Patient having history of stye that has resolved continues to white dot on the interior of the left lower lid. Advised patient to use warm compresses and continue to monitor. (8) Palpitations: Code(s): R00.2 - Palpitations Category: Medical Plan: Patient complaining of palpitations ordered for 5 day Holter monitor for further evaluation. Can consider echocardiogram or referral to Cardiology. (9) Onychomycosis: Code(s): B35.1 - Tinea unguium Category: Medical Plan: Patient having toenail fungus of bilateral great toes. Plan to start on terbinafine for 3 months once liver labs have been obtained. Once initiation begins with terbinafine will have to redraw labs in 1 month to monitor liver function. Plan This note was constructed using voice recognition software. While every effort has been made to ensure accuracy and geological scout, still areas may have been included sometimes these areas may affect the content or meeting of the given symptoms. Total time spent caring for the patient today was 30 minutes. This includes time spent before the visit reviewing the chart, time spent during the visit, and time spent after the visit and documentation. Orders: Orders Lipid Panel Today I87.2 - Venous insufficiency (chronic) (peripheral) UA and rflx microscopic Today I87.2 - Venous insufficiency (chronic) (peripheral) Comprehensive Met. Panel Today E66.9 - Obesity, unspecified TURNER Reflex Titer and Pattern Today R60.0 - Localized edema ECG 5 day holter monitor Today R00.2 - Palpitations Complete Blood Count no Diff Today I87.2 - Venous insufficiency (chronic) (peripheral) Thyroid Stimulating Hormone Today I87.2 - Venous insufficiency (chronic) (peripheral) Vitamin B12 and Folate Today E66.9 - Obesity, unspecified Vitamin D 25-OH Total Today E66.9 - Obesity, unspecified Erythrocyte Sedimentation Rate Today R60.0 - Localized edema C Reactive Protein Today R60.0 - Localized edema Referrals Podiatry Referral L60.0 - Ingrowing nail, L60.3 - Nail dystrophy
[2024-12-14 11:04] VITALS: BP 130/60; PULSE 75; TEMP 36.6; O2SAT 98; BMI 33.9
== END 2024-12-14 11:40 | disposition home or self-care (01) ==
PROVIDERS: PCP Internal Medicine
DX: D64.9 Anemia, unspecified (principal); E66.9 Obesity, unspecified; Z68.33 Body mass index [BMI] 33.0-33.9, adult; Z72.0 Tobacco use; R60.0 Localized edema; L60.0 Ingrowing nail; H00.019 Hordeolum externum unspecified eye, unspecified eyelid; R00.2 Palpitations; B35.1 Tinea unguium

== ENCOUNTER → 2024-12-14 10:58 | Outpatient (BNVA) | payer OTHER, SELFPAY | PROVIDERS: PCP Internal Medicine | DX: Z00.00 Encounter for general adult medical examination without abnormal findings (principal); E66.9 Obesity, unspecified; D64.9 Anemia, unspecified; L60.0 Ingrowing nail; L60.3 Nail dystrophy; R60.0 Localized edema; H00.019 Hordeolum externum unspecified eye, unspecified eyelid; R00.2 Palpitations; B35.1 Tinea unguium; I87.2 Venous insufficiency (chronic) (peripheral); Z72.0 Tobacco use | CPT/HCPCS: 99212 ==

== ENCOUNTER 2024-12-15 08:17 | Outpatient (REF) | payer OTHER, SELFPAY ==
[2024-12-15 09:05] LABS: Hematocrit 42.9 % (37.0-47.0); Hemoglobin 14.6 g/dl (12.0-16.0); Mean Corpuscular Hemoglobin 31.4 pg (27.0-33.0); Mean Corpuscular Volume 92.3 fL (80.0-98.0); Platelet Count 353 X10*3/uL (160-400); Red Blood Count 4.65 X10*6/uL (4.20-5.50); Red Cell Distribution Width 11.9 % (11.0-16.0); White Blood Count 10.6 X10*3/uL (4.8-10.8)
[2024-12-15 09:16] LABS: Appearance Urine Clear; Color Urine Yellow; Glucose Urine UA Negative (Negative); Leukocyte Esterase Urine Trace (Negative); Nitrite Urine Positive (Negative); PH 6.5 (5.0-9.0); UMIC TRIGGER UA YES; Urine Blood Negative (Negative); Urine Ketones Negative (Negative); Urine Protein Negative (Neg-Trace)
[2024-12-15 09:34] LABS: Alanine Aminotransferase 24 U/L (0-31); Albumin Level 4.1 g/dL (3.5-5.0); Alkaline Phosphatase 67 U/L (39-117); Anion Gap 8 (12-20); Aspartate Amino Transferase 20 U/L (5-31); Bilirubin Total 0.8 mg/dL (0.0-1.0); Blood Urea Nitrogen 6 mg/dL (9-16); C Reactive Protein 0.57 mg/dL (< or = 0.50); Calcium 8.8 mg/dL (8.4-10.2); Carbon Dioxide 26 mmol/L (22-29); Chloride 111 mmol/L (96-108); Cholesterol 213 mg/dL (<200); Estimated Glomerular Filt Rate > 60; Glucose Random 86 mg/dL (60-115); HDL Cholesterol 32 mg/dL (>40); LDL Cholesterol Calculated 141 mg/dL (<100); Potassium 4.2 mmol/L (3.3-5.1); Sodium 141 mmol/L (135-145); Total Protein 7.2 g/dL (6.5-8.0); Triglycerides 203 mg/dL (<150)
[2024-12-15 09:54] LABS: Vitamin D 25-OH Total 17.9 ng/mL (>30)
[2024-12-15 09:59] LABS: Folate 10.5 ng/mL (> or = 4.0); Vitamin B12 510 pg/mL (200-900)
[2024-12-15 10:09] LABS: Erythrocyte Sedimentation Rate 8 MM/HR (0-20)
[2024-12-15 10:28] LABS: Bacteria Urine 1+ (None Seen); Hyaline Casts Urine 0-2 /LPF (0-2); RBC Urine 0-2 /HPF (0-2)
[2024-12-17 14:37] LABS: Anti Nuclear Antibody Screen NEGATIVE (NEGATIVE)
== END 2024-12-15 08:18 | disposition home or self-care (01) ==
LOC: HO.LAB 08:17
PROVIDERS: PCP Internal Medicine
DX: I87.2 Venous insufficiency (chronic) (peripheral) (principal); E66.9 Obesity, unspecified; R60.0 Localized edema
CPT/HCPCS: 36415; 80053; 80061; 81001; 82306; 82607; 82746; 84443; 85027; 85652; 86038; 86140

== ENCOUNTER 2025-03-14 12:36 | Outpatient (AMB) | payer OTHER, SELFPAY ==
--- NOTE | 2025-03-14 12:36 | MHC.PC.OV ---
Intake Visit Reasons: f/u telehealth w/ Dr. Reyes Allergies No Known Allergies Allergy (Mild, Verified 03/14/25 12:37) NOT APPLICABLE Tobacco use date assessed: 12/14/24 Dental Screening Dental Screen Date: 12/14/24 Did you have a dental visit in the last 12 months?: Yes Did you have a dental problem in the last 6 months where you did not have access to dental care?: No Was dental information given to patient?: Patient has dentist [facility] Medical History Well woman exam with routine gynecological exam Infectious conjunctivitis of left eye Infection involving suture with abscess Obesity (BMI 30.0-34.9) Dystrophic nail Edema of both feet Obesity (BMI 30-39.9) Allergic rhinitis Migraine Tobacco abuse History of renal calculi Surgical History History of abdominoplasty (~03/2021) History of section Family History Father Hypertension CVD (cardiovascular disease) Mother Depression with anxiety PTSD (post-traumatic stress disorder) Brother Alive and well Maternal Grandmother COPD (chronic obstructive pulmonary disease) Diabetes Maternal Grandfather CVD (cardiovascular disease) Past heart attack Paternal Grandmother Breast cancer Maternal Uncle Substance abuse Other Mental health disorder Social History Housing: Apartment Alcohol intake: current Alcohol intake frequency: holidays/special occasions only Patient Tobacco Use Status: Former Tobacco user Cigarettes Per Day: 3 e-Cigarette/Vaping Use: Never Used Second Hand Smoke Exposure: Yes service: No Current occupational status: employed 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 1. Little interest or pleasure in doing things: not at all 2. Feeling down, depressed, or hopeless: not at all 3. Trouble falling or staying asleep, or sleeping too much: not at all 4. Feeling tired or having little energy: not at all 5. Poor appetite or overeating: not at all 6. Feeling bad about yourself - or that you are a failure or have let yourself or your family down: not at all 7. Trouble concentrating on things, such as reading the newspaper or watching television: not at all 8. Moving or speaking so slowly that other people could have noticed. Or the opposite - being so fidgety or restless that you have been moving around a lot more than usual: not at all 9. Thoughts that you would be better off or of hurting yourself in some way: not at all Total score: 0 Depression Screening Interpretation: Negative Depression Screening Done: Yes Source: Developed by Drs. Marko Lr, Halie Chawla, Sarwat Waite and colleagues, with an educational brenna from [employer]. Thrive Questionnaire Date Thrive assessed: 12/14/24 I am a: Patient What is your living situation today?: I have a steady place to live Within the past 12 months, did the food you bought not last and you didn't have the money to get more?: Never true Within the past 12 months, did you worry whether your food would run out before you got money to buy more?: Never true Do you have trouble paying for medicines?: No Do you have trouble getting transportation to medical appointments?: No Do you have trouble paying your heating and electricity bill?: No Do you have trouble taking care of your child, family member or friend?: No Do you have trouble with day-to-day activities such as bathing, preparing meals, shopping, managing finances, etc.?: No Are you currently unemployed and looking for a job?: No Are you interested in more education?: No Please select the resources that you would like help with: None Currently or been in a relationship where the following occur: No concerns reported THRIVE Score: 0 AUDIT C Alcohol Use Questionnaire (AUDIT-C) 1. How often do you have a drink containing alcohol?: Monthly or less 2. How many drinks containing alcohol do you have on a typical day when you are drinking?: 1 or 2 3. How often do you have six or more drinks on one occasion?: Never Total Score: 1 KRISTOPHER-7 AMB Questionnaire KRISTOPHER-7 Date KRISTOPHER - 7 assessed: 12/14/24 Feeling nervous, anxious, or on edge: 0 = Not at all Not being able to stop or control worryin = Not at all Worrying too much about different things: 0 = Not at all Trouble relaxin = Not at all Being so restless that it is hard to sit still: 0 = Not at all Becoming easily annoyed or irritable: 0 = Not at all Feeling afraid as if something awful might happen: 0 = Not at all Total KRISTOPHER-7 score (0-4 normal; 5-9 mild; 10-14 moderate; 15-21 severe): 0 Source: Developed by Drs. Marko Lr, Halie Chawla, Sarwat Waite and colleagues, with an educational brenna from [employer]. Physical exam (Primary Care) Tobacco/Smoking Status: Tobacco use Status Tobacco use date assessed 12/14/24 03/14/25 12:38 Patient Tobacco Use Status Former Tobacco user 03/14/25 12:38 e-Cigarette/Vaping Use Never Used 03/14/25 12:38 PHQ-9: PHQ-9 Score PHQ-9: Total score 0 03/14/25 12:38 Depression Screening Interpretation: Negative Thrive Assessment: Date of Thrive Assessment Date Thrive assessed 12/14/24 03/14/25 12:38 Currently or been in a relationship where the following occur: No concerns reported Telehealth Telehealth Telehealth Platform: Buz Location of provider rendering services: practice address Location of patient: address on file Patient Identification confirmed using: Name, : Yes Telehealth method: video Patient verbally consented to treatment: Yes Patient verbally consented to billing insurance company: Yes Patient informed of any privacy concerns related to visit: Yes Minutes spent on Phone/Video with Pt.: 25 Coding Level of Care Code Tele Est Pt Level 4 (09722) Diagnoses Hypercholesterolemia E78.00 Low vitamin D level R79.89 Leg swelling M79.89 Assessment & Plan Assessment & Plan (1) Hypercholesterolemia: Code(s): E78.00 - Pure hypercholesterolemia, unspecified Category: Medical Plan: Avoid fried foods, chicken skin, eggs, butter margarine, pastries and meat. Be it pork or beef they have a lot of cholesterol LDL goal of less than 130 and triglyceride of less than 150 (2) Low vitamin D level: Code(s): R79.89 - Other specified abnormal findings of blood chemistry Category: Medical Plan: Vitamin-D 4716-1028 units once a day (3) Leg swelling: Code(s): M79.89 - Other specified soft tissue disorders Category: Medical Plan: Patient was advised to follow-up so that we can examined. But discussed with the blood work that renal function and liver function were tested in December blood work were within normal limits Plan History of Present Illness The patient is a 34-year-old female presenting with bilateral lower extremity edema and pain. She reports swelling in both legs and feet, which previously improved with overnight elevation, is now worsening and persists into the morning. The swelling is accompanied by a soreness, which she likens to a bruise, localized primarily under her knees. Her concern is whether her obesity might be contributing to these symptoms, as she is now unable to comfortably walk long distances. Histories of anemia and surgery for an abdominoplasty in 2020 are noted. She was evaluated in December 2024 with normal blood work except for elevated cholesterol and low vitamin D. Current smoker status is also reported. Review of Systems - Cardiovascular: Reports bilateral lower extremity edema and pain. - Musculoskeletal: Reports soreness under knees and in feet. - General: Denies improvement of swelling overnight; reports increased difficulty with ambulation. Plan The plan addresses the bilateral lower extremity edema, primarily attributed to circulatory insufficiency, possibly related to obesity and smoking. Kidney and liver functions are normal, ruling out an organ-related cause. The physical exam will emphasize circulation assessment. We aim to lower her LDL and triglycerides to reduce cardiovascular risk. Vitamin D supplementation is indicated. Patient was informed and verbally consented to the use of an ambient scribe for clinic note documentation during this visit. Discussion Notes During our telehealth conversation, I discussed the likely cause of the patient's bilateral lower extremity edema as being primarily circulatory, potentially related to her obesity and exacerbated by her smoking habit. Recent laboratory work was reviewed showing normal kidney and liver functions, thus ruling out other potential causes of edema. I discussed the plan for further evaluation to include an assessment of her pulses and circulation during a physical examination. The necessity of managing her cholesterol levels by setting target LDL and triglyceride levels was emphasized to mitigate cardiovascular risk, especially given her smoking status. The importance of vitamin D supplementation to address her deficiency was also reviewed. Plans to address these issues through lifestyle modification and potential further medical intervention were discussed. Patient Instructions - Monitor swelling in your legs and feet, noting any changes in severity or persistence. - Elevate your legs when possible to assist with swelling reduction. - Continue taking vitamin D supplements: 1000 to 2000 units daily. - Follow dietary guidelines to lower cholesterol, aiming for an LDL of less than 130 mg/dL. - Maintain physical activity within comfort levels. - Schedule an appointment for a further physical evaluation of your symptoms. - Contact the clinic if swelling significantly worsens or if you experience new symptoms such as pain or numbness.
== END 2025-03-14 14:53 | disposition home or self-care (01) ==
LOC: HO.HMCH 12:36
PROVIDERS: PCP Internal Medicine; Visit Provider Internal Medicine
DX: E78.00 Pure hypercholesterolemia, unspecified (principal); R79.89 Other specified abnormal findings of blood chemistry; M79.89 Other specified soft tissue disorders

== ENCOUNTER → 2025-03-14 12:36 | Outpatient (BNVA) | payer OTHER, SELFPAY | PROVIDERS: PCP Internal Medicine; Visit Provider Internal Medicine | DX: Z13.89 Encounter for screening for other disorder (principal) ==

== ENCOUNTER 2025-05-16 16:43 | Outpatient (AMB) | payer OTHER, SELFPAY ==
[2025-05-16 16:45] VITALS: BP 110/76; PULSE 89; O2SAT 97; BMI 33.9
--- NOTE | 2025-05-16 16:45 | MHC.PC.OV ---
Vital Signs 05/16/25 16:45 Height 5 ft Weight 173 lb 6 oz BMI 33.9 BP 110/76 Blood Pressure Location Lt brachial Position Sitting Pulse 89 Pulse Source Pulse Oximeter Pulse Oximetry (%) 97 Oxygen Delivery Method Room Air Intake Visit Reasons: weight management Scrap Baler Required: No Accompanied by: Self / Same As Patient Allergies No Known Allergies Allergy (Mild, Verified 05/16/25 16:45) NOT APPLICABLE Medication List - Last Reconciled 05/16/25 by Filomena Reyes MD acetaminophen ER (Tylenol 8 Hour) 650 mg PO Q12H levonorgestrel (Mirena) intrauterine Tobacco use date assessed: 05/16/25 Dental Screening Dental Screen Date: 05/16/25 Did you have a dental visit in the last 12 months?: Yes Did you have a dental problem in the last 6 months where you did not have access to dental care?: No Was dental information given to patient?: Patient has dentist HPI weight management HPI Details concern on problem with weight tried gym ,diet with no relief PFSH Medical History Well woman exam with routine gynecological exam Infectious conjunctivitis of left eye Infection involving suture with abscess Obesity (BMI 30.0-34.9) Dystrophic nail Edema of both feet Obesity (BMI 30-39.9) Allergic rhinitis Migraine Tobacco abuse History of renal calculi Surgical History History of abdominoplasty (~03/2021) History of section Family History Father Hypertension CVD (cardiovascular disease) Mother Depression with anxiety PTSD (post-traumatic stress disorder) Brother Alive and well Maternal Grandmother COPD (chronic obstructive pulmonary disease) Diabetes Maternal Grandfather CVD (cardiovascular disease) Past heart attack Paternal Grandmother Breast cancer Maternal Uncle Substance abuse Other Mental health disorder Social History Housing: Apartment Alcohol intake: current Alcohol intake frequency: holidays/special occasions only Patient Tobacco Use Status: Former Tobacco user Cigarettes Per Day: 3 e-Cigarette/Vaping Use: Never Used Second Hand Smoke Exposure: Yes service: No Current occupational status: employed 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 1. Little interest or pleasure in doing things: not at all 2. Feeling down, depressed, or hopeless: not at all 3. Trouble falling or staying asleep, or sleeping too much: not at all 4. Feeling tired or having little energy: not at all 5. Poor appetite or overeating: not at all 6. Feeling bad about yourself - or that you are a failure or have let yourself or your family down: not at all 7. Trouble concentrating on things, such as reading the newspaper or watching television: not at all 8. Moving or speaking so slowly that other people could have noticed. Or the opposite - being so fidgety or restless that you have been moving around a lot more than usual: not at all 9. Thoughts that you would be better off or of hurting yourself in some way: not at all Total score: 0 Depression Screening Interpretation: Negative Depression Screening Done: Yes Source: Developed by Drs. Marko Lr, Halie Chawla, Sarwat Waite and colleagues, with an educational brenna from [employer]. Thrive Questionnaire Date Thrive assessed: 05/16/25 I am a: Patient What is your living situation today?: I have a steady place to live Within the past 12 months, did the food you bought not last and you didn't have the money to get more?: Never true Within the past 12 months, did you worry whether your food would run out before you got money to buy more?: Never true Do you have trouble paying for medicines?: No Do you have trouble getting transportation to medical appointments?: No Do you have trouble paying your heating and electricity bill?: No Do you have trouble taking care of your child, family member or friend?: No Do you have trouble with day-to-day activities such as bathing, preparing meals, shopping, managing finances, etc.?: No Are you currently unemployed and looking for a job?: No Are you interested in more education?: No Please select the resources that you would like help with: None Currently or been in a relationship where the following occur: No concerns reported THRIVE Score: 0 AUDIT C Alcohol Use Questionnaire (AUDIT-C) 1. How often do you have a drink containing alcohol?: Monthly or less 2. How many drinks containing alcohol do you have on a typical day when you are drinking?: 1 or 2 3. How often do you have six or more drinks on one occasion?: Never Total Score: 1 KRISTOPHER-7 AMB Questionnaire KRISTOPHER-7 Date KRISTOPHER - 7 assessed: 05/16/25 Feeling nervous, anxious, or on edge: 0 = Not at all Not being able to stop or control worryin = Not at all Worrying too much about different things: 0 = Not at all Trouble relaxin = Not at all Being so restless that it is hard to sit still: 0 = Not at all Becoming easily annoyed or irritable: 0 = Not at all Feeling afraid as if something awful might happen: 0 = Not at all Total KRISTOPHER-7 score (0-4 normal; 5-9 mild; 10-14 moderate; 15-21 severe): 0 Source: Developed by Drs. Marko Lr, Halie Chawla, Sarwat Waite and colleagues, with an educational brenna from [employer]. Physical exam (Primary Care) Vital Signs: Last Vital Signs Pulse 89 05/16/25 16:45 BP 110/76 05/16/25 16:45 Pulse Ox 97 05/16/25 16:45 Oxygen Delivery Method Room Air 05/16/25 16:45 BMI result Body Mass Index 33.9 Tobacco/Smoking Status: Tobacco use Status Tobacco use date assessed 05/16/25 05/16/25 16:50 Patient Tobacco Use Status Former Tobacco user 05/16/25 16:50 e-Cigarette/Vaping Use Never Used 05/16/25 16:50 PHQ-9: PHQ-9 Score PHQ-9: Total score 0 05/16/25 16:59 Depression Screening Interpretation: Negative Thrive Assessment: Date of Thrive Assessment Date Thrive assessed 05/16/25 05/16/25 16:50 Currently or been in a relationship where the following occur: No concerns reported Const General: alert; No acute distress Eyes Conjunctivae: conjunctivae normal Resp Auscultation: clear to auscultation bilaterally Cardio Rate: regular rate Rhythm: regular rhythm GI Inspection: Yes normal to inspection Extrem General: Yes normal to inspection and No edema Coding Level of Care Code Est Pt Level 4 (75339) Diagnoses Hypercholesterolemia E78.00 Obesity (BMI 30.0-34.9) E66.9 Tobacco abuse Z72.0 Low vitamin D level R79.89 Assessment & Plan Assessment & Plan (1) Hypercholesterolemia: Code(s): E78.00 - Pure hypercholesterolemia, unspecified Category: Medical Plan: Avoid fried foods, chicken skin, eggs, butter margarine, pastries and meat. Be it pork or beef they have a lot of cholesterol LDL goal of less than 130 and triglyceride of less than 150 (2) Obesity (BMI 30.0-34.9): Code(s): E66.9 - Obesity, unspecified Category: Medical Plan: Diet and exercise (3) Tobacco abuse: Comment: stopped 2019 Code(s): Z72.0 - Tobacco use Category: Medical Plan: Congratulation (4) Low vitamin D level: Code(s): R79.89 - Other specified abnormal findings of blood chemistry Category: Medical Plan History of Present Illness The patient is a 34-year-old female presenting with hypercholesterolemia and concerns regarding weight management. She has a history of obesity and hypercholesterolemia, with her last blood work in December showing elevated cholesterol levels despite normal blood count, electrolytes, renal, and liver function. The patient reports a history of vitamin D deficiency, with levels noted to be low during her last evaluation. The patient underwent an abdominoplasty in 2020 and has since experienced significant weight gain, approximately 40 pounds, which she attributes to her sedentary lifestyle and dietary habits. She reports persistent edema in her feet and legs, which she associates with her weight gain. The patient has attempted various weight loss strategies, including dieting and exercise, without significant success. The patient has a history of smoking but quit in 2019 prior to her surgery. She currently uses Tylenol as needed and has a Mirena IUD. Health Maintenance - Advised to increase physical activity and dietary modifications to manage weight and cholesterol levels. - Recommended sun exposure or vitamin D supplementation to address deficiency. - Encouraged smoking cessation, which the patient has successfully achieved. 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 - Exercise: Attempts to exercise regularly but reports limited success in weight loss. - Diet: Reports stress eating, particularly sweets and high-calorie foods. - Substance Use: Former smoker, quit in 2020. Review of Systems - Cardiovascular: Reports edema in feet and legs. Denies chest pain or palpitations. - Musculoskeletal: Reports difficulty with weight-bearing activities due to weight gain. - Endocrine: Reports weight gain despite attempts at diet and exercise. Physical Exam Results - Labs: December blood work showed elevated cholesterol levels, normal blood count, electrolytes, renal, and liver function. - Vitamin D level: Low, specific value not provided. Plan The patient will be advised to follow a cholesterol management plan with a target LDL of less than 130 mg/dL and triglycerides less than 150 mg/dL through diet and exercise. She is encouraged to continue her smoking cessation efforts, which she has successfully maintained since 2019. For weight management, the patient is considering pharmacological options, including a once-weekly injectable medication, with the understanding of potential side effects such as nausea. The patient is advised to monitor her weight and report any lack of progress after three weeks of treatment. Follow-up is scheduled for three months to assess progress and adjust the treatment plan as necessary. Patient was informed and verbally consented to the use of an ambient scribe for clinic note documentation during this visit. Discussion Notes I discussed with the patient the importance of managing her cholesterol levels through lifestyle modifications, including diet and exercise, and the potential use of pharmacological interventions for weight management. We reviewed the benefits and potential side effects of a once-weekly injectable medication for weight loss, emphasizing the importance of monitoring progress and adjusting the treatment plan as needed. The patient was advised to continue her smoking cessation efforts and to follow up in three months to evaluate her progress. Patient Instructions - Follow a diet and exercise plan to manage cholesterol and weight. - Monitor weight and report any lack of progress after three weeks of treatment. - Continue smoking cessation efforts. - Schedule a follow-up appointment in three months. Medications: New tirzepatide (Mounjaro) for 4 weeks 2.5 mg (0.5 mL) subcut QWEEK 2 mL 1RF E66.9 - Obesity, unspecified
== END 2025-05-16 17:20 | disposition home or self-care (01) ==
LOC: HO.HMCH 16:44
PROVIDERS: PCP Internal Medicine; Visit Provider Internal Medicine
DX: E78.00 Pure hypercholesterolemia, unspecified (principal); E66.9 Obesity, unspecified; Z68.33 Body mass index [BMI] 33.0-33.9, adult; Z72.0 Tobacco use; R79.89 Other specified abnormal findings of blood chemistry

== ENCOUNTER → 2025-05-16 16:43 | Outpatient (BNVA) | payer OTHER, SELFPAY | PROVIDERS: PCP Internal Medicine; Visit Provider Internal Medicine | DX: E66.9 Obesity, unspecified (principal); R79.89 Other specified abnormal findings of blood chemistry; E78.00 Pure hypercholesterolemia, unspecified; E55.9 Vitamin D deficiency, unspecified; Z68.33 Body mass index [BMI] 33.0-33.9, adult; Z87.891 Personal history of nicotine dependence | CPT/HCPCS: 99212 ==

== ENCOUNTER 2025-06-17 16:31 | Outpatient (AMB) | payer OTHER, SELFPAY ==
[2025-06-17 16:33] VITALS: BP 106/78; PULSE 83; O2SAT 98; BMI 33.8
--- NOTE | 2025-06-17 16:33 | MHC.PC.OV ---
Vital Signs 06/17/25 16:33 Height 5 ft Weight 173 lb BMI 33.8 BP 106/78 Blood Pressure Location Lt brachial Position Sitting Pulse 83 Pulse Source Pulse Oximeter Pulse Oximetry (%) 98 Oxygen Delivery Method Room Air Intake Visit Reasons: Weight loss medication Mobile Engineer Required: No Accompanied by: Self / Same As Patient Allergies No Known Allergies Allergy (Mild, Verified 06/17/25 16:34) NOT APPLICABLE Medication List - Last Reconciled 06/17/25 by Filomena Reyes MD acetaminophen ER (Tylenol 8 Hour) 650 mg PO Q12H levonorgestrel (Mirena) intrauterine phentermine 37.5 mg PO DAILY Tobacco use date assessed: 06/17/25 Dental Screening Dental Screen Date: 06/17/25 Did you have a dental visit in the last 12 months?: Yes Did you have a dental problem in the last 6 months where you did not have access to dental care?: No Was dental information given to patient?: Patient has dentist [facility] Medical History (Reviewed 03/14/25 @ 12:37 by Carmen Castro [facility]) Well woman exam with routine gynecological exam Infectious conjunctivitis of left eye Infection involving suture with abscess Obesity (BMI 30.0-34.9) Dystrophic nail Edema of both feet Obesity (BMI 30-39.9) Allergic rhinitis Migraine Tobacco abuse History of renal calculi Surgical History History of abdominoplasty (~03/2021) History of section Family History Father Hypertension CVD (cardiovascular disease) Mother Depression with anxiety PTSD (post-traumatic stress disorder) Brother Alive and well Maternal Grandmother COPD (chronic obstructive pulmonary disease) Diabetes Maternal Grandfather CVD (cardiovascular disease) Past heart attack Paternal Grandmother Breast cancer Maternal Uncle Substance abuse Other Mental health disorder Social History Housing: Apartment Alcohol intake: current Alcohol intake frequency: holidays/special occasions only Patient Tobacco Use Status: Former Tobacco user Cigarettes Per Day: 3 e-Cigarette/Vaping Use: Never Used Second Hand Smoke Exposure: Yes service: No Current occupational status: employed 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 1. Little interest or pleasure in doing things: not at all 2. Feeling down, depressed, or hopeless: not at all 3. Trouble falling or staying asleep, or sleeping too much: not at all 4. Feeling tired or having little energy: not at all 5. Poor appetite or overeating: not at all 6. Feeling bad about yourself - or that you are a failure or have let yourself or your family down: not at all 7. Trouble concentrating on things, such as reading the newspaper or watching television: not at all 8. Moving or speaking so slowly that other people could have noticed. Or the opposite - being so fidgety or restless that you have been moving around a lot more than usual: not at all 9. Thoughts that you would be better off or of hurting yourself in some way: not at all Total score: 0 Depression Screening Interpretation: Negative Depression Screening Done: Yes Source: Developed by Drs. Marko Lr, Halie Chawla, Sarwat Waite and colleagues, with an educational brenna from [employer]. Thrive Questionnaire Date Thrive assessed: 06/17/25 I am a: Patient What is your living situation today?: I have a steady place to live Within the past 12 months, did the food you bought not last and you didn't have the money to get more?: Never true Within the past 12 months, did you worry whether your food would run out before you got money to buy more?: Never true Do you have trouble paying for medicines?: No Do you have trouble getting transportation to medical appointments?: No Do you have trouble paying your heating and electricity bill?: No Do you have trouble taking care of your child, family member or friend?: No Do you have trouble with day-to-day activities such as bathing, preparing meals, shopping, managing finances, etc.?: No Are you currently unemployed and looking for a job?: No Are you interested in more education?: No Please select the resources that you would like help with: None Currently or been in a relationship where the following occur: No concerns reported THRIVE Score: 0 AUDIT C Alcohol Use Questionnaire (AUDIT-C) 1. How often do you have a drink containing alcohol?: Monthly or less 2. How many drinks containing alcohol do you have on a typical day when you are drinking?: 1 or 2 3. How often do you have six or more drinks on one occasion?: Never Total Score: 1 KRISTOPHER-7 AMB Questionnaire KRISTOPHER-7 Date KRISTOPHER - 7 assessed: 06/17/25 Feeling nervous, anxious, or on edge: 0 = Not at all Not being able to stop or control worryin = Not at all Worrying too much about different things: 0 = Not at all Trouble relaxin = Not at all Being so restless that it is hard to sit still: 0 = Not at all Becoming easily annoyed or irritable: 0 = Not at all Feeling afraid as if something awful might happen: 0 = Not at all Total KRISTOPHER-7 score (0-4 normal; 5-9 mild; 10-14 moderate; 15-21 severe): 0 Source: Developed by Drs. Marko Lr, Halie Chawla, Sarwat Waite and colleagues, with an educational brenna from [employer]. Physical exam (Primary Care) Vital Signs: Last Vital Signs Pulse 83 06/17/25 16:33 BP 106/78 06/17/25 16:33 Pulse Ox 98 06/17/25 16:33 Oxygen Delivery Method Room Air 06/17/25 16:33 BMI result Body Mass Index 33.8 Tobacco/Smoking Status: Tobacco use Status Tobacco use date assessed 06/17/25 06/17/25 16:39 Patient Tobacco Use Status Former Tobacco user 06/17/25 16:39 e-Cigarette/Vaping Use Never Used 06/17/25 16:39 PHQ-9: PHQ-9 Score PHQ-9: Total score 0 06/17/25 16:39 Depression Screening Interpretation: Negative Thrive Assessment: Date of Thrive Assessment Date Thrive assessed 06/17/25 06/17/25 16:39 Currently or been in a relationship where the following occur: No concerns reported Const General: alert; No acute distress Eyes Conjunctivae: conjunctivae normal Resp Auscultation: clear to auscultation bilaterally Cardio Rate: regular rate Rhythm: regular rhythm GI Inspection: Yes normal to inspection Extrem General: Yes normal to inspection and No edema Coding Level of Care Code Est Pt Level 3 (67865) Diagnoses Obesity (BMI 30-39.9) E66.9 Assessment & Plan Assessment & Plan (1) Obesity (BMI 30-39.9): Code(s): E66.9 - Obesity, unspecified Category: Medical Plan History of Present Illness The patient is a 35-year-old female presenting for a follow-up visit. She has a history of obesity , which are ongoing concerns. The patient has been managing hypercholesterolemia, with recent blood work indicating elevated cholesterol levels and low vitamin D. In December, the patient's blood work showed normal blood count, electrolytes, renal function, and blood sugar levels. Liver function tests were also normal, but cholesterol levels were elevated, and vitamin D was low. Health Maintenance Social History - . Review of Systems Physical Exam - Lower extremities: No pitting edema observed Results - Labs: Normal blood count, electrolytes, renal function, and blood sugar levels; elevated cholesterol; low vitamin D Plan The plan includes addressing the patient's obesity which are ongoing health concerns. For hypercholesterolemia, the patient will continue to monitor cholesterol levels and consider dietary and lifestyle modifications to manage this condition. Vitamin D deficiency will be addressed with appropriate supplementation. The patient will be advised to follow up in one month to reassess her condition and the effectiveness of the interventions. Patient was informed and verbally consented to the use of an ambient scribe for clinic note documentation during this visit. Discussion Notes I discussed with the patient the importance of managing her obesity to improve her overall health. We reviewed her recent lab results, which showed elevated cholesterol and low vitamin D, and discussed the need for dietary changes and supplementation. I advised her to follow up in one month to evaluate the effectiveness of these interventions. Patient Instructions - Continue to monitor cholesterol levels and consider dietary changes to manage hypercholesterolemia. - Begin vitamin D supplementation as discussed. - Follow up in one month to reassess health status and treatment effectiveness. Medications: New phentermine must administer 30 minutes before or 1-2 hours after breakfast 37.5 mg PO DAILY 30 tabs 0RF E66.9 - Obesity, unspecified Discontinued tirzepatide (Mounjaro) for 4 weeks Discontinued Reason: Doctor's Order 2.5 mg (0.5 mL) subcut QWEEK 2 mL 1RF E66.9 - Obesity, unspecified
== END 2025-06-17 17:10 | disposition home or self-care (01) ==
LOC: HO.HMCH 16:32
PROVIDERS: PCP Internal Medicine; Visit Provider Internal Medicine
DX: E66.9 Obesity, unspecified (principal); Z68.33 Body mass index [BMI] 33.0-33.9, adult

== ENCOUNTER → 2025-06-17 16:31 | Outpatient (BNVA) | payer OTHER, SELFPAY | PROVIDERS: PCP Internal Medicine; Visit Provider Internal Medicine | DX: E66.9 Obesity, unspecified (principal); Z68.33 Body mass index [BMI] 33.0-33.9, adult; Z13.31 Encounter for screening for depression; Z13.39 Encounter for screening examination for other mental health and behavioral disorders | CPT/HCPCS: 99212 ==

== ENCOUNTER 2025-08-17 13:22 | Outpatient (AMB) | payer OTHER, SELFPAY ==
--- NOTE | 2025-08-17 13:22 | A.OFFPC_ITS ---
Intake Visit Reasons: obesity Allergies No Known Allergies Allergy (Mild, Verified 08/17/25 13:22) NOT APPLICABLE Tobacco use date assessed: 08/17/25 Dental Screening Dental Screen Date: 08/17/25 Did you have a dental visit in the last 12 months?: Yes Did you have a dental problem in the last 6 months where you did not have access to dental care?: No Was dental information given to patient?: Patient has dentist [facility] Medical History Well woman exam with routine gynecological exam Infectious conjunctivitis of left eye Infection involving suture with abscess Obesity (BMI 30.0-34.9) Dystrophic nail Edema of both feet Obesity (BMI 30-39.9) Allergic rhinitis Migraine Tobacco abuse History of renal calculi Surgical History History of abdominoplasty (~03/2021) History of section Family History Father Hypertension CVD (cardiovascular disease) Mother Depression with anxiety PTSD (post-traumatic stress disorder) Brother Alive and well Maternal Grandmother COPD (chronic obstructive pulmonary disease) Diabetes Maternal Grandfather CVD (cardiovascular disease) Past heart attack Paternal Grandmother Breast cancer Maternal Uncle Substance abuse Other Mental health disorder Social History Housing: Apartment Alcohol intake: current Alcohol intake frequency: holidays/special occasions only Patient Tobacco Use Status: Former Tobacco user Cigarettes Per Day: 3 e-Cigarette/Vaping Use: Never Used Second Hand Smoke Exposure: Yes service: No Current occupational status: employed 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 1. Little interest or pleasure in doing things: not at all 2. Feeling down, depressed, or hopeless: not at all 3. Trouble falling or staying asleep, or sleeping too much: not at all 4. Feeling tired or having little energy: not at all 5. Poor appetite or overeating: not at all 6. Feeling bad about yourself - or that you are a failure or have let yourself or your family down: not at all 7. Trouble concentrating on things, such as reading the newspaper or watching television: not at all 8. Moving or speaking so slowly that other people could have noticed. Or the opposite - being so fidgety or restless that you have been moving around a lot more than usual: not at all 9. Thoughts that you would be better off or of hurting yourself in some way: not at all Total score: 0 Depression Screening Interpretation: Negative Depression Screening Done: Yes Source: Developed by Drs. Marko Lr, Halie Chawla, Sarwat Waite and colleagues, with an educational brenna from [employer]. Thrive Questionnaire Date Thrive assessed: 06/17/25 I am a: Patient What is your living situation today?: I have a steady place to live Within the past 12 months, did the food you bought not last and you didn't have the money to get more?: Never true Within the past 12 months, did you worry whether your food would run out before you got money to buy more?: Never true Do you have trouble paying for medicines?: No Do you have trouble getting transportation to medical appointments?: No Do you have trouble paying your heating and electricity bill?: No Do you have trouble taking care of your child, family member or friend?: No Do you have trouble with day-to-day activities such as bathing, preparing meals, shopping, managing finances, etc.?: No Are you currently unemployed and looking for a job?: No Are you interested in more education?: No Please select the resources that you would like help with: None Currently or been in a relationship where the following occur: No concerns reported THRIVE Score: 0 AUDIT C Alcohol Use Questionnaire (AUDIT-C) 1. How often do you have a drink containing alcohol?: Monthly or less 2. How many drinks containing alcohol do you have on a typical day when you are drinking?: 1 or 2 3. How often do you have six or more drinks on one occasion?: Never Total Score: 1 KRISTOPHER-7 AMB Questionnaire KRISTOPHER-7 Date KRISTOPHER - 7 assessed: 06/17/25 Feeling nervous, anxious, or on edge: 0 = Not at all Not being able to stop or control worryin = Not at all Worrying too much about different things: 0 = Not at all Trouble relaxin = Not at all Being so restless that it is hard to sit still: 0 = Not at all Becoming easily annoyed or irritable: 0 = Not at all Feeling afraid as if something awful might happen: 0 = Not at all Total KRISTOPHER-7 score (0-4 normal; 5-9 mild; 10-14 moderate; 15-21 severe): 0 Source: Developed by Drs. Marko Lr, Halie Chawla, Sarwat Waite and colleagues, with an educational brenna from [employer]. Physical exam (Primary Care) Tobacco/Smoking Status: Tobacco use Status Tobacco use date assessed 08/17/25 08/17/25 13:24 Patient Tobacco Use Status Former Tobacco user 08/17/25 13:24 e-Cigarette/Vaping Use Never Used 08/17/25 13:24 PHQ-9: PHQ-9 Score PHQ-9: Total score 0 08/17/25 13:24 Depression Screening Interpretation: Negative Thrive Assessment: Date of Thrive Assessment Date Thrive assessed 06/17/25 08/17/25 13:24 Currently or been in a relationship where the following occur: No concerns reported Telehealth Telehealth Telehealth Platform: Telephone Location of provider rendering services: practice address Location of patient: address on file Patient Identification confirmed using: Name, : Yes Telehealth method: voice only Patient verbally consented to treatment: Yes Patient verbally consented to billing insurance company: Yes Patient informed of any privacy concerns related to visit: Yes Minutes spent on Phone/Video with Pt.: 25 Coding Level of Care Code Tele Est Pt Level 4 (86689) Diagnoses Obesity (BMI 30-39.9) E66.9 Low vitamin D level R79.89 Hypercholesterolemia E78.00 Assessment & Plan Assessment & Plan (1) Obesity (BMI 30-39.9): Code(s): E66.9 - Obesity, unspecified Category: Medical Plan: Diet and exercise (2) Low vitamin D level: Code(s): R79.89 - Other specified abnormal findings of blood chemistry Category: Medical Plan: Vitamin-D 6233-6290 units once a day (3) Hypercholesterolemia: Code(s): E78.00 - Pure hypercholesterolemia, unspecified Category: Medical Plan: Avoid fried foods, chicken skin, eggs, butter margarine, pastries and meat. Be it pork or beef they have a lot of cholesterol LDL goal of less than 130 and triglyceride of less than 150. Plan History of Present Illness The patient is a 35-year-old female presenting for a follow-up of telehealth and management of hypercholesterolemia. She has a history of obesity and tobacco use disorder, which may contribute to her elevated cholesterol levels. Her last blood work in December 2024 showed normal blood counts, normal electrolytes, renal function, and blood sugar, but elevated LDL cholesterol at 141 mg/dL and triglycerides at 123 mg/dL. Additionally, she was noted to have low vitamin D levels. The patient has a history of anemia and underwent an abdominoplasty in the past. She reports a significant weight loss from 177 pounds to 158 pounds, which she attributes to recent efforts, although she did not specify the methods used. Review of Systems - Cardiovascular: Denies palpitations. - Musculoskeletal: Reports partial loss of toenail. Plan Patient was informed and verbally consented to the use of an ambient scribe for clinic note documentation during this visit. 1. Hypercholesterolemia The patient is advised to aim for an LDL cholesterol goal of less than 130 mg/dL and triglycerides less than 150 mg/dL. Diet and exercise modifications are recommended to help achieve these targets. A follow-up blood test will be necessary to reassess cholesterol levels. 2. Vitamin D Deficiency The patient is instructed to take vitamin D supplements, 1000 to 2000 units daily. Discussion Notes During the consultation, I discussed with the patient the importance of managing her cholesterol levels through lifestyle modifications, including diet and exercise. We also reviewed her vitamin D deficiency and the need for supplementation. I emphasized the necessity of a follow-up blood test to monitor her cholesterol levels and ensure the effectiveness of the treatment plan. Patient Instructions - Take vitamin D supplements, 1000 to 2000 units daily. - Follow a healthy diet and engage in regular exercise to manage cholesterol levels. - Schedule a follow-up blood test to reassess cholesterol levels. Medications: Refilled phentermine must administer 30 minutes before or 1-2 hours after breakfast 37.5 mg PO DAILY 30 tabs 0RF E66.9 - Obesity, unspecified
== END 2025-08-17 17:28 | disposition home or self-care (01) ==
LOC: HO.HMCH 13:22
PROVIDERS: PCP Internal Medicine; Visit Provider Internal Medicine
DX: E66.9 Obesity, unspecified (principal); R79.89 Other specified abnormal findings of blood chemistry; E78.00 Pure hypercholesterolemia, unspecified

== ENCOUNTER 2025-11-02 11:08 | Outpatient (AMB) | payer OTHER, SELFPAY ==
[2025-11-02 11:19] VITALS: BP 112/72; PULSE 80; O2SAT 98; BMI 30.1
--- NOTE | 2025-11-02 11:19 | MHC.PC.OV ---
Vital Signs 11/02/25 11:19 Height 5 ft Weight 154 lb BMI 30.1 BP 112/72 Blood Pressure Location Lt brachial Position Sitting Pulse 80 Pulse Source Pulse Oximeter Pulse Oximetry (%) 98 Oxygen Delivery Method Room Air Intake Visit Reasons: Obesity Follow Up Allergies No Known Allergies Allergy (Mild, Verified 11/02/25 11:20) NOT APPLICABLE Medication List - Last Reconciled 11/02/25 by Filomena Reyes MD acetaminophen ER (Tylenol 8 Hour) 650 mg PO Q12H levonorgestrel (Mirena) intrauterine phentermine 37.5 mg PO DAILY Tobacco use date assessed: 08/17/25 Dental Screening Dental Screen Date: 08/17/25 HPI HPI Comments History of Present Illness Details History of Present Illness The patient is a 35-year-old individual presenting for a follow-up visit for hypercholesterolemia and weight management, with a new chief complaint of a persistent foot skin condition. The patient's last visit was in August 2025. Regarding weight management, the patient has a history of obesity and was placed on phentermine for weight loss. The patient has experienced successful weight loss of over 20 pounds on the medication. An injectable weight loss medication was previously attempted but was denied by insurance. The patient reports side effects from phentermine including constipation and sweating. Regarding the new complaint, the patient has been dealing with a condition on the bottom of the left foot for approximately two years, which the patient believes is a worsening fungus. It is associated with significant pruritus that sometimes requires the patient to remove the shoe to scratch it. The patient has tried [id number] antifungals and a previously prescribed ketoconazole cream with no improvement. The patient also reports a more severe issue involving the right toe, which is described as appearing black. Past medical history is significant for hypercholesterolemia and low vitamin D, which were noted on blood work from December 2024. The patient has a history of smoking and quit in 2019. Lab work from December 2024 was otherwise normal, including blood count, electrolytes, renal function, and blood sugar. Health Maintenance - Weight management: The patient has lost over 20 pounds using phentermine, with diet and exercise. - Hypercholesterolemia management: Goals for LDL cholesterol are less than 130 mg/dL and triglycerides less than 150 mg/dL. - Tobacco use: Patient quit smoking in 2019. - Future care: The patient has an annual physical scheduled for December. Social History - Tobacco Use: The patient is a former smoker, having quit in 2019. - Weight Management: The patient is actively engaged in a weight loss program with medication, diet, and exercise, and has achieved over 20 pounds of weight loss. - The patient has a weight loss goal of 145 lbs. Results - Labs (December 2024): - CBC: Normal - Electrolytes: Normal - Renal function: Normal - Glucose: Normal - Lipid Panel: Elevated cholesterol - Vitamin D: Low PFSH Medical History Well woman exam with routine gynecological exam Infectious conjunctivitis of left eye Infection involving suture with abscess Obesity (BMI 30.0-34.9) Dystrophic nail Edema of both feet Obesity (BMI 30-39.9) Allergic rhinitis Migraine Tobacco abuse History of renal calculi Surgical History History of abdominoplasty (~03/2021) History of section Family History Father Hypertension CVD (cardiovascular disease) Mother Depression with anxiety PTSD (post-traumatic stress disorder) Brother Alive and well Maternal Grandmother COPD (chronic obstructive pulmonary disease) Diabetes Maternal Grandfather CVD (cardiovascular disease) Past heart attack Paternal Grandmother Breast cancer Maternal Uncle Substance abuse Other Mental health disorder Social History Housing: Apartment Alcohol intake: current Alcohol intake frequency: holidays/special occasions only Patient Tobacco Use Status: Former Tobacco user Tobacco use type: Cigarette Cigarettes Per Day: 3 e-Cigarette/Vaping Use: Never Used Second Hand Smoke Exposure: Yes service: No Current occupational status: employed 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 Cognitive needs: No Hearing needs: No Vision needs: No Female Reproductive History Menstrual Age of Menarche: 14 Questionnaire Thrive Questionnaire Date Thrive assessed: 12/14/24 I am a: Patient What is your living situation today?: I have a steady place to live Within the past 12 months, did the food you bought not last and you didn't have the money to get more?: Never true Within the past 12 months, did you worry whether your food would run out before you got money to buy more?: Never true Do you have trouble paying for medicines?: No Do you have trouble getting transportation to medical appointments?: No Do you have trouble paying your heating and electricity bill?: No Do you have trouble taking care of your child, family member or friend?: No Do you have trouble with day-to-day activities such as bathing, preparing meals, shopping, managing finances, etc.?: No Are you currently unemployed and looking for a job?: No Are you interested in more education?: No Please select the resources that you would like help with: None Currently or been in a relationship where the following occur: No concerns reported THRIVE Score: 0 KRISTOPHER-7 AMB Questionnaire KRISTOPHER-7 Date KRISTOPHER - 7 assessed: 06/17/25 Source: Developed by Drs. Marko Lr, Halie Chawla, Sarwat Waite and colleagues, with an educational brenna from [employer]. Review of Systems Narrative Review of Systems - Constitutional: Reports intentional weight loss of over 20 pounds. Reports increased sweating. - Gastrointestinal: Reports constipation. - Integumentary: Reports a persistent, pruritic rash on the bottom of the left foot for two years. Reports the right toenail appears black. - Cardiovascular: Denies chest pain or palpitations, but was advised to report them if they occur. Physical exam (Primary Care) Vital Signs: Last Vital Signs Pulse 80 11/02/25 11:19 BP 112/72 11/02/25 11:19 Pulse Ox 98 11/02/25 11:19 Oxygen Delivery Method Room Air 11/02/25 11:19 BMI result Body Mass Index 30.1 Tobacco/Smoking Status: Tobacco use Status Tobacco use date assessed 08/17/25 11/02/25 11:20 Patient Tobacco Use Status Former Tobacco user 11/02/25 11:20 Tobacco use type Cigarette 11/02/25 11:20 e-Cigarette/Vaping Use Never Used 11/02/25 11:20 Thrive Assessment: Date of Thrive Assessment Date Thrive assessed 12/14/24 11/02/25 11:20 Currently or been in a relationship where the following occur: No concerns reported Narrative Physical Exam - Vitals: Weight is 154 lbs. - Integumentary: Examination of the left foot reveals findings consistent with a fungal infection, noted particularly between the toes. Const General: alert; No acute distress Eyes Conjunctivae: conjunctivae normal Resp Auscultation: clear to auscultation bilaterally Cardio Rate: regular rate Rhythm: regular rhythm GI Inspection: Yes normal to inspection Extrem General: Yes normal to inspection and No edema Coding Level of Care Code Est Pt Level 4 (94740) Diagnoses Obesity (BMI 30.0-34.9) E66.9 Hypercholesterolemia E78.00 Tinea pedis B35.3 Assessment & Plan Assessment & Plan (1) Obesity (BMI 30.0-34.9): Code(s): E66.9 - Obesity, unspecified Category: Medical Plan: Diet and exercise patient has been placed on phentermine (2) Hypercholesterolemia: Code(s): E78.00 - Pure hypercholesterolemia, unspecified Category: Medical Plan: Avoid fried foods, chicken skin, eggs, butter margarine, pastries and meat. Be it pork or beef they have a lot of cholesterol LDL goal of less than 130 and triglyceride of less than 150. (3) Tinea pedis: Code(s): B35.3 - Tinea pedis Category: Medical Plan Plan Patient was informed and verbally consented to the use of an ambient scribe for clinic note documentation during this visit. 1. Obesity The patient has had successful weight loss on phentermine. It was discussed that this medication is not for long-term use, generally limited to about 12 weeks, due to cardiac risks. The patient was counseled to monitor for and report symptoms such as palpitations or chest pain. Agreeing with the patient's request to reach a goal weight of 145 lbs, a final one-month prescription for phentermine will be provided. Follow-up will occur at the patient's scheduled annual physical in December. 2. Hypercholesterolemia The patient will continue the current statin medication. The treatment goals remain an LDL less than 130 and triglycerides less than 150. Management will be re-evaluated at the next follow-up. 3. Tinea Pedis And Onychomycosis The patient's foot condition appears to be a combination of tinea pedis (skin fungus) and onychomycosis (nail fungus), with the latter being more difficult to treat. Previous treatments with [id number] products and prescribed ketoconazole cream have been ineffective. A new topical antifungal cream will be prescribed for the tinea pedis, to be sent to [facility]. The patient was instructed to apply the cream thoroughly, especially between the toes. An antifungal powder was also recommended for preventative use after the infection clears. A referral will be made to podiatry for backup consultation in case the topical therapy is not successful. Discussion Notes I discussed the plan for weight management with the patient, explaining that phentermine is intended for short-term use due to its potential cardiac side effects like palpitations. I agreed to prescribe one final one-month supply to help the patient reach the goal weight and advised to stop the medication and contact us if any cardiac symptoms occur. Regarding the foot complaint, I explained that there appears to be both a skin fungal infection (tinea pedis) and a toenail fungal infection (onychomycosis), and the toenail infection is much harder to treat. We discussed that the most effective treatment for onychomycosis is a 3-month course of an oral pill, which requires liver monitoring and is not guaranteed to work. We agreed to first try a new topical antifungal cream for the skin infection, and I instructed the patient on proper application. I informed the patient that a referral to podiatry will be provided as a backup plan. We planned for the next follow-up to be the annual physical in December, as no further prescriptions for phentermine will be given after this final fill. Patient Instructions - This is your last one-month supply of phentermine for weight loss. Stop taking it and call the office immediately if you experience any heart palpitations or chest pain. - A prescription for a new antifungal cream has been sent to your pharmacy. Apply it to the bottom of your feet and between your toes as directed. - We are also providing you with information for a manager infrastructure (foot doctor) in case the cream does not clear up the infection. - After the infection clears, you can use an [id number] antifungal powder in your shoes and on your feet to help prevent it from returning. - Please make an appointment at [facility] for your annual physical in December. You do not need to come back sooner just for the weight loss medication. Orders: Referrals Podiatry Referral B35.3 - Tinea pedis Medications: New clotrimazole 1% 1 appl topical BID 45 grams 1RF 4 weeks Refilled phentermine must administer 30 minutes before or 1-2 hours after breakfast 37.5 mg PO DAILY 30 tabs 0RF E66.9 - Obesity, unspecified
== END 2025-11-02 13:02 | disposition home or self-care (01) ==
LOC: HO.HMCH 11:09
PROVIDERS: PCP Internal Medicine; Visit Provider Internal Medicine
DX: E78.00 Pure hypercholesterolemia, unspecified (principal); E66.9 Obesity, unspecified; Z68.30 Body mass index [BMI] 30.0-30.9, adult; B35.3 Tinea pedis

== ENCOUNTER → 2025-11-02 11:08 | Outpatient (BNVA) | payer OTHER, SELFPAY | PROVIDERS: PCP Internal Medicine; Visit Provider Internal Medicine | DX: E66.9 Obesity, unspecified (principal); E78.00 Pure hypercholesterolemia, unspecified; B35.3 Tinea pedis; Z68.30 Body mass index [BMI] 30.0-30.9, adult | CPT/HCPCS: 99212 ==